=== PATIENT | female | born 2000 | race Caucasian/White ===

== ENCOUNTER 2020-12-04 00:16 | Emergency (ER) | payer BC, MEDICAID, SELFPAY ==
[2020-12-04 00:44] VITALS: BP 105/62; PULSE 72; RESP 18; TEMP 36.6; O2SAT 98; BMI 21.9
[2020-12-04 01:46] LABS: Appearance Urine HAZY; Color Urine DARK YELLOW; Glucose Urine UA NEG (NEG); Leukocyte Esterase Urine NEG (NEG); Nitrite Urine NEG (NEG); PH 5.5 (5.0-8.0); Specific Gravity - Urine >= 1.030 (1.005-1.025); Urine Blood TRACE (NEG); Urine Ketones NEG (NEG); Urine Protein NEG (NEG-TRACE)
[2020-12-04 01:47] LABS: UPreg QC Valid YES; Urine Pregnancy NEGATIVE (NEGATIVE)
[2020-12-04 01:52] LABS: Bacteria Urine TRACE /LPF; Mucus Urine 2+ /LPF; Squamous Epithelial Cell Urine 1+ /LPF; WBC Urine 0-2 /HPF (0-4)
--- NOTE | 2020-12-04 01:54 | ED_ITS ---
HPI - Headache General Chief Complaint: Headache Stated Complaint: headache Time Seen by Provider: 12/04/20 00:53 Source: patient Mode of arrival: ambulatory History of Present Illness HPI Narrative: 20-year-old female presents with 2 days of head pressure without photosensitivity, neck pain, nausea, fevers, chills, hiking / take exposure, sore throat, cough, or ear pain. She states that she has been alternating Tylenol and ibuprofen since yesterday without success. She denies any recent alcohol intake or decrease in hydration status and otherwise denies any GI or symptoms. LMP 11/11. she denies any visual /speech/auditory changes and denies any gait instability. Related Data Allergies Allergy/AdvReac Type Severity Reaction Status Date / Time diphenhydramine Allergy Anaphylaxis Verified 12/04/20 00:49 [From Benadryl] sulfamethoxazole Allergy Anaphylaxis Verified 12/04/20 00:49 [From Bactrim] trimethoprim [From Bactrim] Allergy Anaphylaxis Verified 12/04/20 00:49 Review of Systems Review of Systems: Pertinent positives and negatives as stated in HPI 10 point review of systems is otherwise negative. FOR[facility], [facility] Past Medical History Source: nursing notes reviewed Social History Social History Advance Directives: No Patient : No Physical Exam Vital Signs: Vital Signs: Last Vital Signs Temp 97.8 F 12/04/20 00:44 Pulse 68 12/04/20 02:56 Resp 18 12/04/20 02:56 BP 122/66 12/04/20 02:56 Pulse Ox 99 12/04/20 02:56 Body Mass Index 21.9 VITAL SIGNS: Reviewed. GENERAL: Well developed, well nourished, in no acute distress. HEAD: Normocephalic/atraumatic EYES: PERRLA, EOMI intact without pain, no nystagmus EARS: Ext canals without abnormality, TMs non-bulging and non-erythematous NOSE: Nares patent bilateral OROPHARYNX: no oral lesions noted, posterior pharynx clear and non-erythematous without noted tonsillar enlargement/erythema/exudates NECK: Supple, no adenopathy LUNGS: Normal breath sounds. No adventitious sounds or accessory muscle use. SpO2<98> CARDIOVASCULAR: Regular rate and rhythm without noted murmurs ABDOMEN: Soft, non-tender, non-distended with bowel sounds. SKIN: Inspection of the skin reveals no rashes NEUROLOGIC: Alert and oriented x 4. Strength and sensation to light touch were grossly intact x 4. Course Course Course Narrative: 20-year-old female with history and clinical presentation consistent with sinus headache versus tension headache. Patient provided with analgesic combination and will be re-evaluated. On re-evaluation patient is feeling better although still has some residual headache and is otherwise hemodynamically stable without focal findings. She was discharged home in stable condition. MDM - Headache Lab Data Labs: Lab Results 12/04/20 12/04/20 Range/Units 01:41 01:41 Urine Color DARK YELLOW Urine Appearance HAZY Urine pH 5.5 (5.0-8.0) Ur Specific [place] >= 1.030 H (1.005-1.025) Urine Protein NEG (NEG-TRACE) MG/DL Urine Glucose (UA) NEG (NEG) MG/DL Urine Ketones NEG (NEG) MG/DL Urine Blood TRACE (NEG) Urine Nitrite NEG (NEG) Ur Leukocyte Esterase NEG (NEG) Urine RBC 1-4 (0) /HPF Urine WBC 0-2 (0-4) /HPF Ur Squamous Epith Cells 1+ /LPF Urine Bacteria TRACE /LPF Urine Mucus 2+ /LPF Urine Test NEGATIVE (NEGATIVE) Discharge Plan Discharge Clinical Impression: Headache Patient Disposition: Home, Self-Care Instructions: Toothache (ED), General Headache (ED) Additional Instructions: 1. please follow-up with your primary care provider in the next 2-3 days for re- evaluation and further outpatient management. 2. Tylenol 1000 mg, orally, every 6 hours as needed for pain control. Do not exceed 4000 mg within 24 hours. 3. Recommend [id number] Excedrin migraine and take as directed on the outside packaging. As long as this medication does not have additional acetaminophen/ Tylenol you may take this in combination with the above Tylenol dose for added relief. 4. Please follow up with the dentist by calling them this morning to set up a follow-up appointment for re-evaluation of your tooth. Return to the ER for acute worsening of symptoms. Referrals: Physician,None [Primary Care Provider] - 2 days
[2020-12-04] MEDS: Acetaminophen 325 MG TABLET 975 MG PO (02:42)
[2020-12-04] MEDS: Ketorolac Tromethamine 15 MG/ML VIAL IM (02:43)
[2020-12-04 02:56] VITALS: BP 122/66; PULSE 68; RESP 18; O2SAT 99
== END 2020-12-04 04:40 | disposition home or self-care (01) ==
PROVIDERS: Emergency Provider Student in an Organized Health Care Education/Training Program
DX: R51.9 Headache, unspecified (principal)
CPT/HCPCS: 81001; 81025; 96372; 99284; J1885

== ENCOUNTER 2021-01-17 00:15 | Emergency (ER) | payer BC, MEDICAID, SELFPAY ==
[2021-01-17 00:20] VITALS: BP 116/63; PULSE 72; RESP 18; TEMP 36.4; O2SAT 98; BMI 22.0
[2021-01-17] MEDS: Famotidine/PF 20 MG/2 ML VIAL IVPUSH ×2 (00:31→01:29)
[2021-01-17] MEDS: methylPREDNISolone Sod Succ 125 MG/2 ML VIAL IVPUSH ×2 (00:31→01:29)
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
[2021-01-17] MEDS: 0.9 % Sodium Chloride 1,000 ML 999 ML IVCONT (01:28)
[2021-01-17 01:51] VITALS: BP 106/62; PULSE 58; RESP 14; TEMP 36.6; O2SAT 100
== END 2021-01-17 02:13 | disposition home or self-care (01) ==
PROVIDERS: Emergency Provider Emergency Medicine Emergency Medical Services
DX: T78.40XA Allergy, unspecified, initial encounter (principal); Y99.9 Unspecified external cause status; L50.9 Urticaria, unspecified
CPT/HCPCS: 96361; 96374; 96375; 96376; 99283; 99284; J2930

== ENCOUNTER 2021-03-22 06:54 | Emergency (ER) | payer MEDICAID, SELFPAY ==
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
[2021-03-22 07:19] VITALS: BP 103/67; PULSE 92; RESP 16; TEMP 36.4; O2SAT 97; BMI 22.6
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
[2021-03-22] MEDS: Ketorolac Tromethamine 60 MG/2 ML VIAL IM (07:49)
[2021-03-22 08:57] VITALS: RESP 18
== END 2021-03-22 08:58 | disposition home or self-care (01) ==
PROVIDERS: Emergency Provider Emergency Medicine
DX: S40.021A Contusion of right upper arm, initial encounter (principal); M79.601 Pain in right arm; V19.9XXA Pedal cyclist (driver) (passenger) injured in unspecified traffic accident, initial encounter; Y93.9 Activity, unspecified; Y92.9 Unspecified place or not applicable; Y99.9 Unspecified external cause status; Z79.899 Other long term (current) drug therapy
CPT/HCPCS: 73030; 73060; 73070; 96372; 99284; J1885

== ENCOUNTER 2021-05-04 05:40 | Emergency (ER) | payer OTHER, SELFPAY ==
[2021-05-04 05:58] VITALS: BP 119/82; PULSE 85; RESP 16; TEMP 36.8; O2SAT 99; BMI 20.7
--- NOTE | 2021-05-04 06:08 | ED.DENTAL ---
HPI - Dental/Oral General Chief complaint: Dental/Oral Stated complaint: root canal complication Time Seen by Provider: 05/04/21 06:03 Source: patient Mode of arrival: ambulatory Limitations: no limitations History of Present Illness HPI Narrative: likely failed root canal per her dentist has appointment with specialist on Thursday - on clindamycin since thursday reports she is in too much pain and her whole mouth hurts Complaint: tooth pain Onset (ago): week(s) (1.5) Duration: constant Severity: moderate Relieving factors: nothing Exacerbating factors: chewing, cold, heat, drinking fluids and swallowing Context: history of dental caries and other (failed root canal) Treatment prior to arrival: other (on clindamycin) Related Data Previous Rx's Medication Instructions Recorded famotidine 20 mg tablet (Pepcid AC) 20 mg PO DAILY #4 tab 01/17/21 prednisone 50 mg tablet 50 mg PO DAILY #4 tab 01/17/21 ibuprofen 600 mg tablet 600 mg PO TID #20 tab 03/22/21 tramadol 50 mg tablet 50 mg PO TID PRN 3 Days #10 tab 05/04/21 Allergies Allergy/AdvReac Type Severity Reaction Status Date / Time diphenhydramine Allergy Anaphylaxis Verified 05/04/21 06:03 [From Benadryl] sulfamethoxazole Allergy Anaphylaxis Verified 05/04/21 06:03 [From Bactrim] trimethoprim [From Bactrim] Allergy Anaphylaxis Verified 05/04/21 06:03 Review of Systems Review of Systems: Constitutional : No Fever, No Chills ENT/Mouth : No swallowing difficulty, no change in voice, positive dental pain, positive jaw pain, no facial swelling Eyes: No Eye Pain, No Swelling Cardiovascular : No Chest Pain, No SOB Respiratory : No Cough, No Sputum Gastrointestinal : No Nausea, No Vomiting, No Diarrhea Skin : No rash Neuro : No Weakness, No Numbness, No Headache PMF Past Medical History Medical History Failing root canal Social History Social History (Updated 05/04/21 @ 06:32 by Aye Alonso DO) Patient Tobacco Use Status: Never used Tobacco Advance Directives: No Advance Directives Information Provided: Yes Patient : No Physical Exam Vital Signs: Vital Signs: Last Vital Signs Temp 98.2 F 05/04/21 05:58 Pulse 85 12/04/21 05:58 Resp 16 05/04/21 05:58 BP 119/82 05/04/21 05:58 Pulse Ox 99 05/04/21 05:58 BMI result Body Mass Index 20.7 Appearance: Alert. Oriented X3. No acute distress. Eyes: Pupils equal, round and reactive to light. ENT: Pharynx normal. no swelling, no abscess, poor dentition, no fluctuance no submandibular or sublingual swelling Neck: Normal inspection. Neck supple. no swelling CVS: Pulses normal. Respiratory: No respiratory distress. Abdomen: Soft and non-tender. Skin: Skin warm and dry. Normal skin color. Extremities: No lower extremity edema. Neuro: Oriented X 3. No motor deficit. No sensory deficit. MDM - Dental/Oral MDM Narrative Medical decision making narrative: 20 yo female with hx of root canal 3 months ago did well until 1 week ago with worsening pain - shes on clindamycin since yesterday I do not see an abscess at this time. Her pain is all over she has no fevers, no swelling - will continue on her clindamycin and start on pain medications. I attest that I have reviewed patients [place], and at this time prescribing the patient a controlled substance is appropriate based off of patients diagnosis and treatment plan Discharge Plan Discharge Clinical Impression: Toothache Patient Disposition: Home, Self-Care Instructions: Toothache (ED) Additional Instructions: return to ED for any worsening symptoms or concerns please follow up with your dentist on Thursday Prescriptions: New tramadol 50 mg tablet 50 mg PO TID PRN (Reason: pain) 3 Days Qty: 10 RF: 0 No Action prednisone 50 mg tablet 50 mg PO DAILY Qty: 4 RF: 0 famotidine [Pepcid AC] 20 mg tablet 20 mg PO DAILY Qty: 4 RF: 0 ibuprofen 600 mg tablet 600 mg PO TID Qty: 20 RF: 0 Stand Alone Forms: Work/School Release
[2021-05-04] MEDS: HYDROcodone Bit/Acetam 5/325 TABLET 1 TAB PO (06:26)
[2021-05-04] MEDS: Ondansetron ODT 4 MG TAB.RAPDIS TRANSLINGU (06:26)
--- NOTE | 2021-05-04 06:27 | PC.NURSE ---
Medicated per MAR.
== END 2021-05-04 06:35 | disposition home or self-care (01) ==
PROVIDERS: Emergency Provider Emergency Medicine
DX: K08.89 Other specified disorders of teeth and supporting structures (principal)
CPT/HCPCS: 99283

== ENCOUNTER 2021-05-07 01:44 | Emergency (ER) | payer OTHER, SELFPAY ==
[2021-05-07 02:02] VITALS: BP 113/63; PULSE 82; RESP 16; TEMP 36.9; O2SAT 100; BMI 20.7
--- NOTE | 2021-05-07 02:17 | ED.DENTAL ---
HPI - Dental/Oral General Chief complaint: Dental/Oral Stated complaint: tooth pain Time Seen by Provider: 05/07/21 02:02 Source: patient Mode of arrival: ambulatory Limitations: no limitations History of Present Illness HPI Narrative: Patient comes emergency room complaining of dental pain. Patient was seen earlier this week for dental pain. Prescribed oxycodone, patient states it worked well. Patient was seen today by her dentist, then she was sent to a specialist in [place]. She went to her appointment in [place], she was told that her insurance will not cover the procedure on the same tooth. At this time, patient dealing with insurance issues. Patient continues taking prescribed antibiotics but she ran out of pain medication. Patient denies fever chills, Related Data Previous Rx's Medication Instructions Recorded famotidine 20 mg tablet (Pepcid AC) 20 mg PO DAILY #4 tab 01/17/21 prednisone 50 mg tablet 50 mg PO DAILY #4 tab 01/17/21 ibuprofen 600 mg tablet 600 mg PO TID #20 tab 03/22/21 tramadol 50 mg tablet 50 mg PO TID PRN 3 Days #10 tab 05/04/21 ketorolac 10 mg tablet 10 mg PO TID PRN 5 Days #10 tab 05/07/21 oxycodone 5 mg tablet 5 mg PO Q8H PRN #7 tab 05/07/21 Allergies Allergy/AdvReac Type Severity Reaction Status Date / Time diphenhydramine Allergy Anaphylaxis Verified 05/04/21 06:03 [From Benadryl] sulfamethoxazole Allergy Anaphylaxis Verified 05/04/21 06:03 [From Bactrim] trimethoprim [From Bactrim] Allergy Anaphylaxis Verified 05/04/21 06:03 Review of Systems Review of Systems: Constitutional : No Weight loss, No Fever, No Chills, No Night Sweats, No Fatigue, No Malaise ENT/Mouth : No Hearing loss, No Ear Pain, No Nasal Congestion, No Sinus Pain, No Hoarseness, No sore throat, No Rhinorrhea, No Swallowing Difficulty, complaining of dental pain Eyes: No Eye Pain, No Swelling, No Redness, No Foreign Body, No Discharge, No Vision Changes Cardiovascular : No Chest Pain, No SOB, No Dyspnea on Exertion, No Orthopnea, No Edema, No Palpitations Respiratory : No Cough, No Sputum, No Wheezing, No Smoke Exposure, No Dyspnea Gastrointestinal : No Nausea, No Vomiting, No Diarrhea, No Constipation, No abdominal Pain, No Hematochezia, No Melena Genitourinary : no irregular bleeding, No Dysuria, No Urinary Frequency, No Hematuria, No Urinary Incontinence, No Urgency, No Flank Pain, No Urinary Flow Changes, No Hesitancy Musculoskeletal : No joint pain, No Myalgias, No Joint Swelling Skin : No Skin Lesions, No rash Neuro : No Weakness, No Numbness, No Paresthesias, No Loss of Consciousness, No Dizziness, No Headache Psych : No Anxiety/Panic, No Depression, No SI/HI/AH/VH, No Social Issues, Heme/Lymph: No Bruising, No Bleeding,No Lymphadenopathy Endocrine : No Polyuria, No Polydipsia, No Temperature Intolerance [facility] Past Medical History Medical History Failing root canal Social History Social History (Updated 05/04/21 @ 06:32 by Aye Alonso DO) Patient Tobacco Use Status: Never used Tobacco Advance Directives: No Physical Exam Vital Signs: Vital Signs: Last Vital Signs Temp 98.5 F 05/07/21 02:02 Pulse 82 05/07/21 02:02 Resp 16 05/07/21 02:02 BP 113/63 05/07/21 02:02 Pulse Ox 100 05/07/21 02:02 BMI result Body Mass Index 20.7 Const: Other: Appearance: Alert. Oriented X3. No acute distress. Eyes: Pupils equal, round and reactive to light. ENT: Pharynx normal. Dental pain in the maxillary right side. No abscesses, no gingivitis, no facial swelling Neck: Normal inspection. Neck supple. No lymph nodes noted. No crepitus CVS: Normal heart rate and rhythm. Pulses normal. Normal S1 and S2 Respiratory: No respiratory distress. Breath sounds normal. No Wheezing. No rales Abdomen: Soft and nontender. No rigidity. No distention. good BS x4 Skin: Skin warm and dry. Normal skin color. Normal skin turgor. Extremities: No lower extremity edema. No lower extremity edema. No Lacerations. No Rash Neuro: Oriented X 3. No motor deficit. No sensory deficit. Moving all extermities. No slurred speech. Course Course Course Narrative: Patient received 1 dose of IM Toradol. Patient will be prescribed p.o. Toradol and oxycodone. I discussed with the patient the potential of addiction to oxycodone. Patient agrees that she will try to take Toradol and avoid oxycodone. Instructed to continue taking her antibiotics as prescribed. Discharge Plan Discharge Clinical Impression: Toothache Patient Disposition: Home, Self-Care Instructions: Toothache (ED) Additional Instructions: Please follow-up with your primary care physician tomorrow. If you have any worsening or new symptoms, please return to the emergency room or call 911 Prescriptions: New ketorolac 10 mg tablet 10 mg PO TID PRN (Reason: pain) 5 Days Qty: 10 RF: 0 oxycodone 5 mg tablet 5 mg PO Q8H PRN (Reason: pain) Qty: 7 RF: 0 No Action prednisone 50 mg tablet 50 mg PO DAILY Qty: 4 RF: 0 famotidine [Pepcid AC] 20 mg tablet 20 mg PO DAILY Qty: 4 RF: 0 ibuprofen 600 mg tablet 600 mg PO TID Qty: 20 RF: 0 tramadol 50 mg tablet 50 mg PO TID PRN (Reason: pain) 3 Days Qty: 10 RF: 0
[2021-05-07] MEDS: Ketorolac Tromethamine 60 MG/2 ML VIAL IM (02:27)
== END 2021-05-07 02:33 | disposition home or self-care (01) ==
PROVIDERS: Emergency Provider Emergency Medicine
DX: K08.89 Other specified disorders of teeth and supporting structures (principal); Z79.899 Other long term (current) drug therapy
CPT/HCPCS: 96372; 99283; 99284; J1885

== ENCOUNTER 2021-06-02 09:02 | Emergency (ER) | payer OTHER, SELFPAY | END 2021-06-02 11:54 | disposition left against medical advice (07) | PROVIDERS: Emergency Provider Emergency Medicine; PCP Emergency Medicine | DX: R68.89 Other general symptoms and signs (principal) ==

== ENCOUNTER 2021-06-20 23:51 | Emergency (ER) | payer OTHER, MEDICAID, SELFPAY ==
[2021-06-21 00:55] VITALS: BP 133/66; PULSE 75; RESP 19; TEMP 37.2; O2SAT 100; BMI 22.6
--- NOTE | 2021-06-21 02:23 | ED_ITS ---
HPI - Dental/Oral General Chief complaint: Dental/Oral Stated complaint: oral pain after surgery Time Seen by Provider: 06/21/21 00:26 Source: patient Mode of arrival: ambulatory History of Present Illness HPI Narrative: 20-year-old female with presentation of having undergone extensive dental procedure earlier yesterday involving the right upper jaw with screw and bridge removal. Patient was sent home with recommendations for Tylenol started on clindamycin. She states that the gum is very tender and that ?she can take it anymore?. She denies any difficulty with breathing or swallowing. Related Data Previous Rx's Medication Instructions Recorded famotidine 20 mg tablet (Pepcid AC) 20 mg PO DAILY #4 tab 01/17/21 prednisone 50 mg tablet 50 mg PO DAILY #4 tab 01/17/21 ibuprofen 600 mg tablet 600 mg PO TID #20 tab 03/22/21 tramadol 50 mg tablet 50 mg PO TID PRN 3 Days #10 tab 05/04/21 ketorolac 10 mg tablet 10 mg PO TID PRN 5 Days #10 tab 05/07/21 oxycodone 5 mg tablet 5 mg PO Q8H PRN #7 tab 05/07/21 Allergies Allergy/AdvReac Type Severity Reaction Status Date / Time diphenhydramine Allergy Anaphylaxis Verified 05/04/21 06:03 [From Benadryl] sulfamethoxazole Allergy Anaphylaxis Verified 05/04/21 06:03 [From Bactrim] trimethoprim [From Bactrim] Allergy Anaphylaxis Verified 05/04/21 06:03 Review of Systems Review of Systems: Pertinent positives and negatives as stated in HPI 10 point review of systems is otherwise negative. [facility] Past Medical History Source: nursing notes reviewed Medical History Failing root canal Social History Social History Alcohol intake: unknown Patient Tobacco Use Status: Never used Tobacco Use of substances other than those prescribed or required for medical reasons: Unknown Advance Directives: No Advance Directives Information Provided: Yes Physical Exam Vital Signs: Vital Signs: Last Vital Signs Temp 98.1 F 06/21/21 02:43 Pulse 72 06/21/21 02:43 Resp 16 06/21/21 02:43 BP 108/66 06/21/21 02:43 Pulse Ox 99 06/21/21 02:43 BMI result Body Mass Index 22.6 VITAL SIGNS: Reviewed. GENERAL: Well developed, well nourished, in no acute distress. HEAD: Normocephalic/atraumatic EYES: PERRLA, EOMI EARS: Ext canals without abnormality OROPHARYNX: no oral lesions noted, posterior pharynx clear, upper right gum is clearly red and irritated looking with associated dental caries, no trismus NECK: Supple, no adenopathy LUNGS: Normal breath sounds. No adventitious sounds or accessory muscle use. SpO2<100> CARDIOVASCULAR: Regular rate and rhythm without noted murmurs ABDOMEN: Soft, non-tender, non-distended with bowel sounds. NEUROLOGIC: Alert and oriented x 4. Course Course Course Narrative: 20-year-old female with history and clinical presentation consistent with pain after dental procedure in the appearance of significantly irritated gum tissue. Patient was provided with a Lollicaine and will receive combination analgesics in addition. On re-evaluation patient is feeling much improved and will be discharged home in stable condition. Discharge Plan Discharge Clinical Impression: Toothache Patient Disposition: Home, Self-Care Instructions: Toothache (ED) Additional Instructions: 1. Tylenol 1000 mg, orally, every 6 hours as needed for pain control. Do not exceed 4000 mg within 24 hours. 2. Ibuprofen 400 mg, orally with milk or food, every 6 hours as needed for pain control. 3. Recommend using room temperature liquids for ease of gum tissue and complete the entire course of antibiotics as recommended. 4. Recommend using the topical numbing medication as needed for breakthrough pain. Return to the ER for worsening symptoms. Prescriptions: No Action prednisone 50 mg tablet 50 mg PO DAILY Qty: 4 RF: 0 famotidine [Pepcid AC] 20 mg tablet 20 mg PO DAILY Qty: 4 RF: 0 ibuprofen 600 mg tablet 600 mg PO TID Qty: 20 RF: 0 tramadol 50 mg tablet 50 mg PO TID PRN (Reason: pain) 3 Days Qty: 10 RF: 0 ketorolac 10 mg tablet 10 mg PO TID PRN (Reason: pain) 5 Days Qty: 10 RF: 0 oxycodone 5 mg tablet 5 mg PO Q8H PRN (Reason: pain) Qty: 7 RF: 0
[2021-06-21 02:43] VITALS: BP 108/66; PULSE 72; RESP 16; TEMP 36.7; O2SAT 99
[2021-06-21] MEDS: Acetaminophen 325 MG TABLET 975 MG PO (03:21)
[2021-06-21] MEDS: Ibuprofen 400 MG TABLET PO (03:21)
== END 2021-06-21 03:42 | disposition home or self-care (01) ==
PROVIDERS: Emergency Provider Student in an Organized Health Care Education/Training Program
DX: K08.89 Other specified disorders of teeth and supporting structures (principal); G89.18 Other acute postprocedural pain; Z98.818 Other dental procedure status
CPT/HCPCS: 99283; 99284

== ENCOUNTER 2021-07-21 01:55 | Emergency (ER) | payer OTHER, MEDICAID, SELFPAY ==
[2021-07-21 01:56] VITALS: BP 126/77; PULSE 80; RESP 18; TEMP 36.4; O2SAT 100; BMI 21.7
[2021-07-21] MEDS: Ondansetron ODT 4 MG TAB.RAPDIS TRANSLINGU (02:00)
[2021-07-21 02:12] LABS: Appearance Urine CLEAR; Color Urine YELLOW; Glucose Urine UA NEG (NEG); Leukocyte Esterase Urine NEG (NEG); Nitrite Urine NEG (NEG); Specific Gravity - Urine 1.025 (1.005-1.025); Urine Blood NEG (NEG); Urine Ketones NEG (NEG); Urine Protein NEG (NEG-TRACE)
[2021-07-21 02:13] LABS: UPreg QC Valid YES; Urine Pregnancy NEGATIVE (NEGATIVE)
== END 2021-07-21 03:36 | disposition left against medical advice (07) ==
PROVIDERS: Student in an Organized Health Care Education/Training Program; Emergency Provider Emergency Medicine
DX: R10.31 Right lower quadrant pain (principal); R11.2 Nausea with vomiting, unspecified
CPT/HCPCS: 81003; 81025; 99283

== ENCOUNTER 2021-12-09 10:49 | Emergency (ER) | payer OTHER, SELFPAY ==
[2021-12-09 11:04] VITALS: BP 122/62; PULSE 60; RESP 19; TEMP 36.6; O2SAT 99; BMI 21.7
--- NOTE | 2021-12-09 11:10 | ECG_ITS ---
Test Reason : syncope Blood Pressure : / mmHG Vent. Rate : 066 BPM Atrial Rate : 066 BPM P-R Int : 114 ms QRS Dur : 080 ms QT Int : 400 ms P-R-T Axes : 035 071 044 degrees QTc Int : 419 ms Normal sinus rhythm Normal ECG No previous ECGs available Referred By: Generic ED Physician Electronically Signed By:NADIR LUNDY MD
[2021-12-09 11:34] LABS: MANUAL DIFF FLAG NO
[2021-12-09 11:35] LABS: Basophils Percent Auto 0.4 % (0-2); Eosinophils Absolute Auto 0.1 X10*3/uL (0.0-0.4); Eosinophils Percent Auto 1.4 % (0-4); Hematocrit 40.3 % (37.0-47.0); Hemoglobin 13.3 g/dl (12.0-16.0); Imm Gran Abs Auto 0.01 X10*3/uL (0.00-0.03); Imm Gran Pct Auto 0.2 % (0.0-0.4); Lymphocytes Absolute Auto 1.8 X10*3/uL (1.2-4.9); Lymphocytes Percent Auto 36.7 % (20-40); Mean Corpuscular Hemoglobin 29.1 pg (27.0-33.0); Mean Corpuscular Volume 88.2 fL (80.0-98.0); Mean Platelet Volume 11.1 fL (9.4-12.3); Monocytes Absolute Auto 0.3 X10*3/uL (0.1-1.2); Monocytes Percent Auto 5.1 % (2-11); Neutrophils Absolute Auto 2.7 x10*3/uL (2.0-8.3); Neutrophils Percent Auto 56.2 % (45-73); Platelet Count 194 X10*3/uL (160-400); Red Blood Count 4.57 X10*6/uL (4.20-5.50); Red Cell Distribution Width 11.9 % (11.0-16.0); White Blood Count 4.9 X10*3/uL (4.8-10.8)
[2021-12-09 11:37] LABS: Appearance Urine CLEAR; Color Urine YELLOW; Glucose Urine UA NEG (NEG); Leukocyte Esterase Urine NEG (NEG); Nitrite Urine NEG (NEG); Specific Gravity - Urine 1.025 (1.005-1.025); Urine Blood NEG (NEG); Urine Ketones NEG (NEG); Urine Protein NEG (NEG-TRACE)
[2021-12-09 11:38] LABS: UPreg QC Valid YES; Urine Pregnancy NEGATIVE (NEGATIVE)
[2021-12-09 11:56] LABS: Anion Gap 11 (12-20); Blood Urea Nitrogen 11 mg/dL (9-16); Calcium 9.3 mg/dL (8.4-10.2); Carbon Dioxide 26 mmol/L (22-29); Chloride 103 mmol/L (96-108); Creatinine Clr Calc Pharmacy 92.5; Estimated Glomerular Filt Rate > 60; Glucose Random 89 mg/dL (60-115); Potassium 4.2 mmol/L (3.3-5.1); Sodium 136 mmol/L (135-145)
[2021-12-09 12:01] LABS: Troponin-I High Sensitivity < 3.5 ng/L (<3.5-17.0)
== END 2021-12-09 16:39 | disposition left against medical advice (07) ==
PROVIDERS: Emergency Provider Emergency Medicine
DX: R55 Syncope and collapse (principal); R42 Dizziness and giddiness; R11.0 Nausea; Z79.899 Other long term (current) drug therapy
CPT/HCPCS: 36415; 80048; 81003; 81025; 84484; 85025; 93005; 99283

== ENCOUNTER 2022-06-14 17:47 | Emergency (ER) | payer OTHER, SELFPAY ==
--- NOTE | ~2022-06-14 | US_ITS ---
EXAMINATION: US ABDOMEN LIMITED CLINICAL INFORMATION: Right upper quadrant abdominal pain, nausea, vomiting, fever. COMPARISON: None TECHNIQUE: Real-time imaging of the right upper quadrant abdominal viscera. FINDINGS: PANCREAS: Normal. LIVER: Diffusely increased hepatic echogenicity and sound attenuation. No focal liver lesion seen. No biliary ductal dilatation.. GALLBLADDER: No gallstones. No gallbladder wall thickening or pericholecystic fluid. No reported sonographic Paredes's sign. 4 mm gallbladder wall polyp. COMMON BILE DUCT: Normal in caliber measuring 0.2 cm in diameter. RIGHT KIDNEY: Normal. No hydronephrosis. No renal calculi or focal parenchymal lesions. The kidney measures 10 cm in maximum dimension. FREE FLUID: None. US/US abdomen limited IMPRESSION: Diffusely increased hepatic echogenicity and sound attenuation suggesting diffuse hepatic steatosis. 4 mm gallbladder wall polyp. This has a very low risk appearance and no imaging follow-up is recommended per the [employer] Consensus Guidelines.
[2022-06-14 18:14] VITALS: BP 120/69; PULSE 91; RESP 18; TEMP 36.6; O2SAT 100; BMI 20.1
--- NOTE | 2022-06-14 18:15 | ED_ITS ---
HPI - Abdominal Pain General Chief Complaint: Abdominal Pain <LEO Ghotra - Last Filed: 06/14/22 18:18> Stated Complaint: gallbladder issues? <LEO Ghotra - Last Filed: 06/14/22 18:18> Time Seen by Provider: 06/14/22 18:26 <LEO Ghotra - Last Filed: 06/14/22 18:18> Source: patient <LEO Negro - Last Filed: 06/14/22 19:59> Mode of arrival: ambulatory <LEO Negro - Last Filed: 06/14/22 19:59> Limitations: no limitations <LEO Negro Last Filed: 06/14/22 19:59> History of Present Illness HPI narrative: This is a 21-year-old female no significant medical history presenting to the emergency department with a chief complaint of ?I am having a gallbladder attack , according to patient she has been having severe right upper quadrant pain for the past 2 days, she tells me it got much worse yesterday after eating a few bites of pizza. She tells me this pain has been going on for the past month and she is scheduled to get her gallbladder removed outpatient at the [facility] on the of this month, she tells me pain is intolerable. Patient also tells me she is having some UTI symptoms, she was on Macrobid for UTI last week she took it for 7 days however she feels like it has not fully resolved. Denies fevers, chills, flank pain, chest pain, shortness of breath, nausea, vomiting, headache, vision changes, dizziness and weakness. <LEO Negro - Last Filed: 06/14/22 19:59> Related Data Home Medications: Previous Rx's Medication Instructions Recorded famotidine 20 mg tablet (Pepcid AC) 20 mg PO DAILY #4 tabs 01/17/21 prednisone 50 mg tablet 50 mg PO DAILY #4 tabs 01/17/21 ibuprofen 600 mg tablet 600 mg PO TID #20 tabs 03/22/21 tramadol 50 mg tablet 50 mg PO TID PRN pain 3 days #10 05/04/21 tabs ketorolac 10 mg tablet 10 mg PO TID PRN pain 5 days #10 05/07/21 tabs oxycodone 5 mg tablet 5 mg PO Q8H PRN pain #7 tabs 05/07/21 cefuroxime axetil 250 mg tablet 250 mg PO BID 7 days #14 tabs 06/14/22 <LEO Ghotra - Last Filed: 06/14/22 18:18> Allergies/Adverse Reactions: Allergies Allergy/AdvReac Type Severity Reaction Status Date / Time diphenhydramine Allergy Anaphylaxis Verified 07/21/21 01:56 [From Benadryl] sulfamethoxazole Allergy Anaphylaxis Verified 07/21/21 01:56 [From Bactrim] trimethoprim [From Bactrim] Allergy Anaphylaxis Verified 07/21/21 01:56 <LEO Ghotra Last Filed: 06/14/22 18:18> Review of Systems Review of Systems Constitutional : No Weight loss, No Fever, No Chills, No Fatigue, No Malaise ENT/Mouth : No sore throat, No Rhinorrhea Eyes: No Eye Pain, No Swelling, No Redness Cardiovascular : No Chest Pain, No SOB, No Dyspnea on Exertion, No Orthopnea, No Edema, No Palpitations Respiratory : No Cough, No Sputum, No Wheezing Gastrointestinal : No Nausea, No Vomiting, No Diarrhea, No Constipation, + abdominal Pain, No Hematochezia, No Melena Genitourinary : No Dysuria, No Urinary Frequency, No Hematuria, Musculoskeletal : No joint pain, No Myalgias, No Joint Swelling Skin : No Skin Lesions, No rash Neuro : No Weakness, No Numbness, No Dizziness, No Headache Psych : No Anxiety/Panic, No Depression All other systems reviewed and are negative <LEO Negro Last Filed: 06/14/22 19:59> Yes all other systems are reviewed and are negative <LEO Negro Last Filed: 06/14/22 19:59> [facility] Past Medical History Attestation statement: The following information was validated with the patient. <LEO Negro Last Filed: 06/14/22 19:59> Source: old records reviewed and nursing notes reviewed <LEO Negro Last Filed: 06/14/22 19:59> Medical History: Medical History Failing root canal <LEO Ghotra - Last Filed: 06/14/22 18:18> Social History Social History: Social History Alcohol intake: unknown Patient Tobacco Use Status: Never used Tobacco Advance Directives: No <LEO Ghotra - Last Filed: 06/14/22 18:18> Physical Exam ED Vital Signs: Vital Signs - 24 hr 06/14/22 18:14 06/14/22 18:51 Temperature 97.9 F 98.4 F Pulse Rate 91 74 Respiratory Rate 18 18 Blood Pressure 120/69 102/60 Pulse Oximetry 100 100 Oxygen Delivery Method Room Air Room Air BMI result Body Mass Index 20.1 <LEO Ghotra - Last Filed: 06/14/22 18:18> Vital Signs - 24 hr 06/14/22 18:14 06/14/22 18:51 Temperature 97.9 F 98.4 F Pulse Rate 91 74 Respiratory Rate 18 18 Blood Pressure 120/69 102/60 Pulse Oximetry 100 100 Oxygen Delivery Method Room Air Room Air BMI result Body Mass Index 20.1 vss <LEO Negro - Last Filed: 06/14/22 19:59> Appearance: Alert.? Oriented X3.? No acute distress.? Patient nontoxic appearing Head: Normocephalic, atraumatic, no step-offs or deformities Eyes: Pupils equal, round and reactive to light.? ENT: Pharynx normal.? Neck: Normal inspection.? Neck supple.? CVS: Normal heart rate and rhythm.? Pulses normal.? Respiratory: No respiratory distress.? Breath sounds normal.? Abdomen: Soft and positive Paredes sign and tenderness to right upper quadrant..? Skin: Skin warm and dry.? Normal skin color.? Normal skin turgor.? Extremities: No lower extremity edema.? No calf ttp. 5/5 strength to bilateral upper and lower extremities Neuro: Oriented X 3.? No motor deficit.? No sensory deficit. CN 2-12 intact <LEO Negro - Last Filed: 06/14/22 19:59> Course Course Course Narrative: RME--21 yo F w/PMHx gallstones and polyps w/scheduled cholecystectomy in [place] in 3 weeks c/o RUQ abdominal pain, N/V, fever 101 today. Abd soft with RUQ/epigastic ttp Labs, UA, US ordered in triage <LEO Ghotra Last Filed: 06/14/22 18:18> Reevaluation(s) Reevaluation #1: CBC within normal limits. Chemistry with no acute findings requiring intervention. UA infected will send home on Ceftin. Urine negative. Patient's ultrasound is still pending however patient tells me that she would like to leave against medical advice, she states she spoke to transfill technician who told her her imaging was normal therefore she wants to leave and finds no need in being here. I explained her that this imaging should be reviewed by Radiology as they are qualified to interpret images, patient tells me she does not care and would like to leave. She also makes her concerns known to nursing. I explained to her that this could require surgical excision of gallbladder and hospital admission further imaging and laboratory studies, patient tells me it does not matter she would like to go home verbalizes risks and benefits of leaving against medical advice. <LEO Negro - Last Filed: 06/14/22 19:59> Time: 19:59 <LEO Negro - Last Filed: 06/14/22 19:59> Medical Decision Making Medical Decision Making MDM Narrative: 21-year-old female presents with right upper quadrant pain worsening over the past 2 days particularly after eating food. She is scheduled to get her gallbladder out on the of this month however tells me pain is intolerable. Physical examination with positive Paredes sign and right upper quadrant tenderness to palpation. Vital signs stable. Patient nontoxic appearing. Likely cholecystitis versus cholelithiasis. Unlikely choledocholithiasis, appendicitis, acute abdomen, peritonitis, diverticulitis or pancreatitis. Will also rule out UTI versus cystitis unlikely pyelonephritis Plan labs, imaging, urine <LEO Negro Last Filed: 06/14/22 19:59> Differential Diagnosis Differential Diagnoses: The differential diagnosis associated with the presentation includes <LEO Negro Last Filed: 06/14/22 19:59> Likely cholecystitis versus cholelithiasis. Unlikely choledocholithiasis, appendicitis, acute abdomen, peritonitis, diverticulitis or pancreatitis. Will also rule out UTI versus cystitis unlikely pyelonephritis <LEO Negro - Last Filed: 06/14/22 19:59> Admission/Observation Consideration of admission/observation: Escalation of care including admission/observation considered <LEO Negro - Last Filed: 06/14/22 19:59> Will likely require hospital admission <LEO Negro - Last Filed: 06/14/22 19:59> Lab Data MDM Lab Attestation statement: I reviewed the patient's lab results. <LEO Negro - Last Filed: 06/14/22 19:59> Result Diagrams: 06/14/22 18:24 06/14/22 18:24 <LEO Ghotra - Last Filed: 06/14/22 18:18> Labs: Lab Results 06/14/22 06/14/22 06/14/22 Range/Units 18:24 18:24 18:31 WBC 6.9 (4.8-10.8) X10*3/uL RBC 4.35 (4.20-5.50) X10*6/uL Hgb 12.8 (12.0-16.0) g/dl Hct 38.7 (37.0-47.0) % MCV 89.0 (80.0-98.0) fL MCH 29.4 (27.0-33.0) pg MCHC 33.1 (31.0-35.0) g/dl RDW 12.2 (11.0-16.0) % Plt Count 183 (160-400) X10*3/uL MPV 11.2 (9.4-12.3) fL Immature Gran % (Auto) 0.3 (0.0-0.4) % Neut % (Auto) 62.0 (45-73) % Lymph % (Auto) 32.2 (20-40) % [place] % (Auto) 4.8 (2-11) % Eos % (Auto) 0.3 (0-4) % Baso % (Auto) 0.4 (0-2) % Lymph # (Auto) 2.2 (1.2-4.9) X10*3/uL [place] # (Auto) 0.3 (0.1-1.2) X10*3/uL Eos # (Auto) 0.0 (0.0-0.4) X10*3/uL Baso # (Auto) 0.0 (0.0-0.2) X10*3/uL Abs Immat Gran (auto) 0.02 (0.00-0.03) X10*3/uL Absolute Neuts (auto) 4.3 (2.0-8.3) x10*3/uL Absolute Nucleated RBC 0.000 (0.0-0.012) X10*3/uL Nucleated RBC % (auto) 0.0 (0.0-0.2) /100WBC Sodium 140 (135-145) mmol/L Potassium 4.0 (3.3-5.1) mmol/L Chloride 108 (96-108) mmol/L Carbon Dioxide 24 (22-29) mmol/L Anion Gap 12 (12-20) BUN 11 (9-16) mg/dL Creatinine 0.78 (0.5-1.4) mg/dL Estim Creat Clear Calc 89.1 Estimated GFR > 60 Random Glucose 88 (60-115) mg/dL Calcium 9.6 (8.4-10.2) mg/dL Magnesium 2.1 (1.6-2.6) mg/dL Total Bilirubin 0.6 (0.0-1.0) mg/dL Direct Bilirubin 0.2 (0.0-0.5) mg/dL AST 18 (5-31) U/L ALT 12 (0-31) U/L Alkaline Phosphatase 44 (39-117) U/L Total Protein 7.6 (6.5-8.0) g/dL Albumin 4.7 (3.5-5.0) g/dL Lipase 20 (8-78) U/L Urine Color Yellow Urine Appearance Cloudy Urine pH 5.5 (5.0-9.0) Ur Specific [place] 1.025 (1.005-1.025) Urine Protein Trace (Neg-Trace) mg/dL Urine Glucose (UA) Negative (Negative) mg/dL Urine Ketones 15 (Negative) mg/dL Urine Blood Moderate (2+) H (Negative) Urine Nitrite Negative (Negative) Ur Leukocyte Esterase Moderate (2+) H (Negative) Urine RBC 0-2 (0-2) /HPF Urine WBC 21-50 H (0-5) /HPF Ur Squamous Epith Cells 11-20 (0-2) /HPF Urine Bacteria 3+ (None Seen) Hyaline Casts 0-2 (0-2) /LPF Urine Test (NEGATIVE) 06/14/22 Range/Units 18:31 WBC (4.8-10.8) X10*3/uL RBC (4.20-5.50) X10*6/uL Hgb (12.0-16.0) g/dl Hct (37.0-47.0) % MCV (80.0-98.0) fL MCH (27.0-33.0) pg MCHC (31.0-35.0) g/dl RDW (11.0-16.0) % Plt Count (160-400) X10*3/uL MPV (9.4-12.3) fL Immature Gran % (Auto) (0.0-0.4) % Neut % (Auto) (45-73) % Lymph % (Auto) (20-40) % [place] % (Auto) (2-11) % Eos % (Auto) (0-4) % Baso % (Auto) (0-2) % Lymph # (Auto) (1.2-4.9) X10*3/uL [place] # (Auto) (0.1-1.2) X10*3/uL Eos # (Auto) (0.0-0.4) X10*3/uL Baso # (Auto) (0.0-0.2) X10*3/uL Abs Immat Gran (auto) (0.00-0.03) X10*3/uL Absolute Neuts (auto) (2.0-8.3) x10*3/uL Absolute Nucleated RBC (0.0-0.012) X10*3/uL Nucleated RBC % (auto) (0.0-0.2) /100WBC Sodium (135-145) mmol/L Potassium (3.3-5.1) mmol/L Chloride (96-108) mmol/L Carbon Dioxide (22-29) mmol/L Anion Gap (12-20) BUN (9-16) mg/dL Creatinine (0.5-1.4) mg/dL Estim Creat Clear Calc Estimated GFR Random Glucose (60-115) mg/dL Calcium (8.4-10.2) mg/dL Magnesium (1.6-2.6) mg/dL Total Bilirubin (0.0-1.0) mg/dL Direct Bilirubin (0.0-0.5) mg/dL AST (5-31) U/L ALT (0-31) U/L Alkaline Phosphatase (39-117) U/L Total Protein (6.5-8.0) g/dL Albumin (3.5-5.0) g/dL Lipase (8-78) U/L Urine Color Urine Appearance Urine pH (5.0-9.0) Ur Specific [place] (1.005-1.025) Urine Protein (Neg-Trace) mg/dL Urine Glucose (UA) (Negative) mg/dL Urine Ketones (Negative) mg/dL Urine Blood (Negative) Urine Nitrite (Negative) Ur Leukocyte Esterase (Negative) Urine RBC (0-2) /HPF Urine WBC (0-5) /HPF Ur Squamous Epith Cells (0-2) /HPF Urine Bacteria (None Seen) Hyaline Casts (0-2) /LPF Urine Test NEGATIVE (NEGATIVE) <LEO Ghotra - Last Filed: 06/14/22 18:18> Lab Results 06/14/22 06/14/22 06/14/22 Range/Units 18:24 18:24 18:31 WBC 6.9 (4.8-10.8) X10*3/uL RBC 4.35 (4.20-5.50) X10*6/uL Hgb 12.8 (12.0-16.0) g/dl Hct 38.7 (37.0-47.0) % MCV 89.0 (80.0-98.0) fL MCH 29.4 (27.0-33.0) pg MCHC 33.1 (31.0-35.0) g/dl RDW 12.2 (11.0-16.0) % Plt Count 183 (160-400) X10*3/uL MPV 11.2 (9.4-12.3) fL Immature Gran % (Auto) 0.3 (0.0-0.4) % Neut % (Auto) 62.0 (45-73) % Lymph % (Auto) 32.2 (20-40) % [place] % (Auto) 4.8 (2-11) % Eos % (Auto) 0.3 (0-4) % Baso % (Auto) 0.4 (0-2) % Lymph # (Auto) 2.2 (1.2-4.9) X10*3/uL [place] # (Auto) 0.3 (0.1-1.2) X10*3/uL Eos # (Auto) 0.0 (0.0-0.4) X10*3/uL Baso # (Auto) 0.0 (0.0-0.2) X10*3/uL Abs Immat Gran (auto) 0.02 (0.00-0.03) X10*3/uL Absolute Neuts (auto) 4.3 (2.0-8.3) x10*3/uL Absolute Nucleated RBC 0.000 (0.0-0.012) X10*3/uL Nucleated RBC % (auto) 0.0 (0.0-0.2) /100WBC Sodium 140 (135-145) mmol/L Potassium 4.0 (3.3-5.1) mmol/L Chloride 108 (96-108) mmol/L Carbon Dioxide 24 (22-29) mmol/L Anion Gap 12 (12-20) BUN 11 (9-16) mg/dL Creatinine 0.78 (0.5-1.4) mg/dL Estim Creat Clear Calc 89.1 Estimated GFR > 60 Random Glucose 88 (60-115) mg/dL Calcium 9.6 (8.4-10.2) mg/dL Magnesium 2.1 (1.6-2.6) mg/dL Total Bilirubin 0.6 (0.0-1.0) mg/dL Direct Bilirubin 0.2 (0.0-0.5) mg/dL AST 18 (5-31) U/L ALT 12 (0-31) U/L Alkaline Phosphatase 44 (39-117) U/L Total Protein 7.6 (6.5-8.0) g/dL Albumin 4.7 (3.5-5.0) g/dL Lipase 20 (8-78) U/L Urine Color Yellow Urine Appearance Cloudy Urine pH 5.5 (5.0-9.0) Ur Specific [place] 1.025 (1.005-1.025) Urine Protein Trace (Neg-Trace) mg/dL Urine Glucose (UA) Negative (Negative) mg/dL Urine Ketones 15 (Negative) mg/dL Urine Blood Moderate (2+) H (Negative) Urine Nitrite Negative (Negative) Ur Leukocyte Esterase Moderate (2+) H (Negative) Urine RBC 0-2 (0-2) /HPF Urine WBC 21-50 H (0-5) /HPF Ur Squamous Epith Cells 11-20 (0-2) /HPF Urine Bacteria 3+ (None Seen) Hyaline Casts 0-2 (0-2) /LPF Urine Test (NEGATIVE) 06/14/22 Range/Units 18:31 WBC (4.8-10.8) X10*3/uL RBC (4.20-5.50) X10*6/uL Hgb (12.0-16.0) g/dl Hct (37.0-47.0) % MCV (80.0-98.0) fL MCH (27.0-33.0) pg MCHC (31.0-35.0) g/dl RDW (11.0-16.0) % Plt Count (160-400) X10*3/uL MPV (9.4-12.3) fL Immature Gran % (Auto) (0.0-0.4) % Neut % (Auto) (45-73) % Lymph % (Auto) (20-40) % [place] % (Auto) (2-11) % Eos % (Auto) (0-4) % Baso % (Auto) (0-2) % Lymph # (Auto) (1.2-4.9) X10*3/uL [place] # (Auto) (0.1-1.2) X10*3/uL Eos # (Auto) (0.0-0.4) X10*3/uL Baso # (Auto) (0.0-0.2) X10*3/uL Abs Immat Gran (auto) (0.00-0.03) X10*3/uL Absolute Neuts (auto) (2.0-8.3) x10*3/uL Absolute Nucleated RBC (0.0-0.012) X10*3/uL Nucleated RBC % (auto) (0.0-0.2) /100WBC Sodium (135-145) mmol/L Potassium (3.3-5.1) mmol/L Chloride (96-108) mmol/L Carbon Dioxide (22-29) mmol/L Anion Gap (12-20) BUN (9-16) mg/dL Creatinine (0.5-1.4) mg/dL Estim Creat Clear Calc Estimated GFR Random Glucose (60-115) mg/dL Calcium (8.4-10.2) mg/dL Magnesium (1.6-2.6) mg/dL Total Bilirubin (0.0-1.0) mg/dL Direct Bilirubin (0.0-0.5) mg/dL AST (5-31) U/L ALT (0-31) U/L Alkaline Phosphatase (39-117) U/L Total Protein (6.5-8.0) g/dL Albumin (3.5-5.0) g/dL Lipase (8-78) U/L Urine Color Urine Appearance Urine pH (5.0-9.0) Ur Specific [place] (1.005-1.025) Urine Protein (Neg-Trace) mg/dL Urine Glucose (UA) (Negative) mg/dL Urine Ketones (Negative) mg/dL Urine Blood (Negative) Urine Nitrite (Negative) Ur Leukocyte Esterase (Negative) Urine RBC (0-2) /HPF Urine WBC (0-5) /HPF Ur Squamous Epith Cells (0-2) /HPF Urine Bacteria (None Seen) Hyaline Casts (0-2) /LPF Urine Test NEGATIVE (NEGATIVE) <LEO Negro - Last Filed: 06/14/22 19:59> Core Measures AMI core measures followed: Yes <LEO Negro - Last Filed: 06/14/22 19:59> Measure exclusions: not indicated <LEO eNgro - Last Filed: 06/14/22 19:59> Medications Administered Discontinued Medications Generic Name Dose Route Start Last Admin Trade Name Freq PRN Reason Stop Dose Admin Sodium Chloride 1,000 mls @ 999 mls/hr 06/14/22 18:15 06/14/22 18:49 Ns IV 06/14/22 19:15 Not Given .Q1H1M ROBIN <LEO Ghotra - Last Filed: 06/14/22 18:18> Medications Administered Discontinued Medications Generic Name Dose Route Start Last Admin Trade Name Freq PRN Reason Stop Dose Admin Sodium Chloride 1,000 mls @ 999 mls/hr 06/14/22 18:15 06/14/22 18:49 Ns IV 06/14/22 19:15 Not Given .Q1H1M ROBIN <LEO Negro - Last Filed: 06/14/22 19:59> Discharge Plan Discharge Clinical Impression: UTI (urinary tract infection), Abdominal pain, RUQ, Left against medical advice <LEO Ghotra Last Filed: 06/14/22 18:18> Patient Disposition: Home, Self-Care <LEO Ghotra Last Filed: 06/14/22 18:18> Instructions: Urinary Tract Infection in Women (ED), Abdominal Pain (ED), Against Medical Advice (ED) <LEO Ghotra Last Filed: 06/14/22 18:18> Additional Instructions: Take your medications as prescribed. If you were prescribed antibiotics today, it is important that you take your medication to their entirety, do not skip any doses, do not finish them early. Follow-up with your primary care provider this week. Return to the emergency department with new or worsening symptoms. Such as fevers, chills, chest pain, shortness of breath, nausea, vomiting, dizziness, headache, vision changes, lethargy In case of emergency call 911 <LEO Ghotra Last Filed: 06/14/22 18:18> Prescriptions: New cefuroxime axetil 250 mg tablet 250 mg PO BID 7 Days Qty: 14 0RF No Action prednisone 50 mg tablet 50 mg PO DAILY Qty: 4 0RF famotidine [Pepcid AC] 20 mg tablet 20 mg PO DAILY Qty: 4 0RF ibuprofen 600 mg tablet 600 mg PO TID Qty: 20 0RF tramadol 50 mg tablet 50 mg PO TID PRN (Reason: pain) 3 Days Qty: 10 0RF ketorolac 10 mg tablet 10 mg PO TID PRN (Reason: pain) 5 Days Qty: 10 0RF Rx Instructions: Do not take ibuprofen with this medication, only oxycodone or Tylenol if needed oxycodone 5 mg tablet 5 mg PO Q8H PRN (Reason: pain) Qty: 7 0RF <LEO Ghotra - Last Filed: 06/14/22 18:18> Referrals: Physician,None [Primary Care Provider] - 2 days <LEO Ghotra - Last Filed: 06/14/22 18:18> Stand Alone Forms: Against Medical Advice <LEO Ghotra - Last Filed: 06/14/22 18:18>
[2022-06-14 18:26] LABS: MANUAL DIFF FLAG NO
[2022-06-14 18:34] LABS: Basophils Percent Auto 0.4 % (0-2); Eosinophils Percent Auto 0.3 % (0-4); Hematocrit 38.7 % (37.0-47.0); Hemoglobin 12.8 g/dl (12.0-16.0); Imm Gran Abs Auto 0.02 X10*3/uL (0.00-0.03); Imm Gran Pct Auto 0.3 % (0.0-0.4); Lymphocytes Absolute Auto 2.2 X10*3/uL (1.2-4.9); Lymphocytes Percent Auto 32.2 % (20-40); Mean Corpuscular HGB Conc 33.1 g/dl (31.0-35.0); Mean Corpuscular Hemoglobin 29.4 pg (27.0-33.0); Mean Platelet Volume 11.2 fL (9.4-12.3); Monocytes Absolute Auto 0.3 X10*3/uL (0.1-1.2); Monocytes Percent Auto 4.8 % (2-11); Neutrophils Absolute Auto 4.3 x10*3/uL (2.0-8.3); Platelet Count 183 X10*3/uL (160-400); Red Blood Count 4.35 X10*6/uL (4.20-5.50); Red Cell Distribution Width 12.2 % (11.0-16.0); White Blood Count 6.9 X10*3/uL (4.8-10.8)
[2022-06-14 18:48] LABS: Appearance Urine Cloudy; Color Urine Yellow; Glucose Urine UA Negative (Negative); Leukocyte Esterase Urine Moderate (2+) (Negative); Nitrite Urine Negative (Negative); PH 5.5 (5.0-9.0); Specific Gravity - Urine 1.025 (1.005-1.025); UMIC TRIGGER UACC YES; UPreg QC Valid YES; Urine Blood Moderate (2+) (Negative); Urine Ketones 15 mg/dL (Negative); Urine Pregnancy NEGATIVE (NEGATIVE); Urine Protein Trace mg/dL (Neg-Trace)
[2022-06-14 18:50] LABS: Alanine Aminotransferase 12 U/L (0-31); Albumin Level 4.7 g/dL (3.5-5.0); Alkaline Phosphatase 44 U/L (39-117); Anion Gap 12 (12-20); Aspartate Amino Transferase 18 U/L (5-31); Bilirubin Direct 0.2 mg/dL (0.0-0.5); Bilirubin Total 0.6 mg/dL (0.0-1.0); Blood Urea Nitrogen 11 mg/dL (9-16); Calcium 9.6 mg/dL (8.4-10.2); Carbon Dioxide 24 mmol/L (22-29); Chloride 108 mmol/L (96-108); Creatinine Clr Calc Pharmacy 89.1; Estimated Glomerular Filt Rate > 60; Glucose Random 88 mg/dL (60-115); Lipase 20 U/L (8-78); Magnesium 2.1 mg/dL (1.6-2.6); Sodium 140 mmol/L (135-145); Total Protein 7.6 g/dL (6.5-8.0)
[2022-06-14 18:51] VITALS: BP 102/60; PULSE 74; RESP 18; TEMP 36.9; O2SAT 100
[2022-06-14 18:59] LABS: Bacteria Urine 3+ (None Seen); Hyaline Casts Urine 0-2 /LPF (0-2); RBC Urine 0-2 /HPF (0-2); UACC Culture Trigger YES; WBC Urine 21-50 /HPF (0-5)
--- NOTE | 2022-06-14 19:07 | PC.NURSE ---
pt refusing line and IV fluids, LEO lyman
== END 2022-06-14 20:05 | disposition home or self-care (01) ==
PROVIDERS: Physician Assistant; Emergency Provider Emergency Medicine
DX: N39.0 Urinary tract infection, site not specified (principal); R10.11 Right upper quadrant pain
CPT/HCPCS: 36415; 76705; 80048; 80076; 81001; 81025; 83690; 83735; 85025; 87086; 99283; 99284

== ENCOUNTER 2022-06-15 20:51 | Emergency (ER) | payer OTHER, SELFPAY ==
[2022-06-15 20:54] VITALS: BP 110/61; PULSE 92; RESP 20; TEMP 36.1; O2SAT 99; BMI 20.7
--- NOTE | 2022-06-15 21:36 | ED_ITS ---
HPI - Abdominal Pain General Chief Complaint: Abdominal Pain Stated Complaint: chest/abdominal pain Time Seen by Provider: 06/15/22 21:28 Source: patient Mode of arrival: ambulatory Limitations: no limitations History of Present Illness HPI narrative: Patient has frequent right upper quadrant epigastric pain for few months seen at [facility] resource analyst had full detailed workup and decided to have cholecystectomy per patient she had gallstones. Patient had ultrasound done yesterday at [facility] showed only small polyp no signs of cholecystitis no gallstones labs were normal. Patient comes here as she has pain earlier today but not now also has nausea no vomiting no diarrhea no fever or chills no urinary complaints Related Data Previous Rx's Medication Instructions Recorded famotidine 20 mg tablet (Pepcid AC) 20 mg PO DAILY #4 tabs 01/17/21 prednisone 50 mg tablet 50 mg PO DAILY #4 tabs 01/17/21 ibuprofen 600 mg tablet 600 mg PO TID #20 tabs 03/22/21 tramadol 50 mg tablet 50 mg PO TID PRN pain 3 days #10 05/04/21 tabs ketorolac 10 mg tablet 10 mg PO TID PRN pain 5 days #10 05/07/21 tabs oxycodone 5 mg tablet 5 mg PO Q8H PRN pain #7 tabs 05/07/21 cefuroxime axetil 250 mg tablet 250 mg PO BID 7 days #14 tabs 06/14/22 dicyclomine 20 mg tablet 20 mg PO QID PRN abdominal pain 06/15/22 #20 tabs ondansetron 4 mg disintegrating 4 mg PO Q6-8H PRN nausea and 06/15/22 tablet vomiting #15 tabs pantoprazole 40 mg tablet,delayed 40 mg PO DAILY #30 tabs 06/15/22 release (Protonix) Allergies Allergy/AdvReac Type Severity Reaction Status Date / Time diphenhydramine Allergy Anaphylaxis Verified 06/15/22 20:58 [From Benadryl] sulfamethoxazole Allergy Anaphylaxis Verified 06/15/22 20:58 [From Bactrim] trimethoprim [From Bactrim] Allergy Anaphylaxis Verified 06/15/22 20:58 [facility] Past Medical History Medical History Failing root canal Social History Social History Alcohol intake: unknown Patient Tobacco Use Status: Never used Tobacco Advance Directives: No Advance Directives Information Provided: No Physical Exam ED Vital Signs: Vital Signs - 24 hr 06/15/22 20:54 Temperature 97 F Pulse Rate 92 Respiratory Rate 20 Blood Pressure 110/61 Pulse Oximetry 99 Oxygen Delivery Method Room Air BMI result Body Mass Index 20.7 Appearance: Alert. Oriented X3. No acute distress. Thin built Eyes: No pallor or icterus ENT: Pharynx normal. Oral Mucosa moist Neck: Normal inspection. Neck supple. CVS: Normal heart rate and rhythm. Pulses normal. Respiratory: No respiratory distress. Equal air entry bilateral, Abdomen: Soft , slight tenderness in epigastric area Paredes sign negative Bowel sounds are present, Skin: Skin warm and dry. Normal skin color. Normal skin turgor. Extremities: No lower extremity edema. No calf tenderness Neuro: Oriented X 3. No motor deficit. Medical Decision Making Medical Decision Making MDM Narrative: Patient nonspecific pain at this time no finding of cholecystitis patient has a follow-up plan with resource analyst and surgeon discharge patient home Medications Administered Discontinued Medications Generic Name Dose Route Start Last Admin Trade Name Freq PRN Reason Stop Dose Admin Dicyclomine HCl 20 mg 06/15/22 21:49 06/15/22 21:59 Dicyclomine Hcl 10 Mg Capsule PO 06/15/22 21:50 20 mg ONCE ONE Administration Omeprazole 40 mg 06/15/22 21:49 06/15/22 21:59 Omeprazole 40 Mg Capsule.Dr PO 06/15/22 21:50 40 mg ONCE ONE Administration Ondansetron HCl 4 mg 06/15/22 21:49 06/15/22 21:59 Ondansetron Odt 4 Mg Tab.Rapdis TRANSLINGU 06/15/22 21:50 4 mg ONCE ONE Administration Discharge Plan Discharge Clinical Impression: Abdominal pain, Chronic GERD Patient Disposition: Home, Self-Care Instructions: Gastroesophageal Reflux Disease (ED), Abdominal Pain (ED) Additional Instructions: Your ultrasound showed small 4 mm gallbladder polyp which is not causing the blockage No gallstones were seen Follow-up with resource analyst for further evaluation Avoid fried food, have small meals with lot of water Prescriptions: New pantoprazole [Protonix] 40 mg tablet,delayed release (DR/EC) 40 mg PO DAILY Qty: 30 0RF dicyclomine 20 mg tablet 20 mg PO QID PRN (Reason: abdominal pain) Qty: 20 0RF ondansetron 4 mg tablet,disintegrating 4 mg PO Q6-8H PRN (Reason: nausea and vomiting) Qty: 15 0RF No Action prednisone 50 mg tablet 50 mg PO DAILY Qty: 4 0RF famotidine [Pepcid AC] 20 mg tablet 20 mg PO DAILY Qty: 4 0RF ibuprofen 600 mg tablet 600 mg PO TID Qty: 20 0RF tramadol 50 mg tablet 50 mg PO TID PRN (Reason: pain) 3 Days Qty: 10 0RF ketorolac 10 mg tablet 10 mg PO TID PRN (Reason: pain) 5 Days Qty: 10 0RF Rx Instructions: Do not take ibuprofen with this medication, only oxycodone or Tylenol if needed oxycodone 5 mg tablet 5 mg PO Q8H PRN (Reason: pain) Qty: 7 0RF cefuroxime axetil 250 mg tablet 250 mg PO BID 7 Days Qty: 14 0RF Referrals: Jass Kaplan MD [Physician] - 1 week Interventions: ED Discharge Assessment Last Done: 06/15/22 22:03 Discharge Date/Time: 06/15/22 22:04
--- NOTE | 2022-06-15 21:38 | PC.NURSE ---
pt refusing labs, would like to leave. pt was here yesterday for same complaint and signed out AMA
--- NOTE | 2022-06-15 21:49 | PC.NURSE ---
per md, no labs need to be drawn at this time
[2022-06-15] MEDS: Dicyclomine HCl 10 MG CAPSULE 20 MG PO (21:59)
[2022-06-15] MEDS: Ondansetron ODT 4 MG TAB.RAPDIS TRANSLINGU (21:59)
[2022-06-15] MEDS: Omeprazole 40 MG CAPSULE.DR PO (21:59)
== END 2022-06-15 22:04 | disposition home or self-care (01) ==
PROVIDERS: Emergency Provider Internal Medicine
DX: K21.9 Gastro-esophageal reflux disease without esophagitis (principal); R07.89 Other chest pain; R10.11 Right upper quadrant pain; Z79.899 Other long term (current) drug therapy
CPT/HCPCS: 99282

== ENCOUNTER 2025-02-12 00:07 | Emergency (ER) | payer MEDICAID, SELFPAY ==
--- NOTE | ~2025-02-12 | CT_ITS ---
CLINICAL HISTORY: sudden onset of headache, SAH? PT 5 MONTHS , WAS ADVISED OF RISKS AND SIGNED CONSENT FORM CT head without contrast Comparison: None provided Findings: No intra-axial mass, midline shift, hydrocephalus, or acute hemorrhage. No significant atrophy-like change or white matter disease. There is no sinus or mastoid fluid. The orbits are within normal limits. No skull fracture. IMPRESSION: 1. No acute intracranial findings. This document has been electronically signed by: Luis Miguel Stock MD on 02/12/2025 02:02:15
[2025-02-12 00:19] VITALS: BP 116/57; PULSE 84; RESP 20; TEMP 36.5; O2SAT 99; BMI 26.4
[2025-02-12 00:40] VITALS: BP 101/55; PULSE 80; RESP 16; TEMP 36.5; O2SAT 99
[2025-02-12 00:40] LABS: MANUAL DIFF FLAG NO
[2025-02-12 00:42] LABS: Hematocrit 34.9 % (37.0-47.0); Hemoglobin 11.7 g/dl (12.0-16.0); Imm Gran Abs Auto 0.04 X10*3/uL (0.00-0.03); Imm Gran Pct Auto 0.4 % (0.0-0.4); Lymphocytes Absolute Auto 2.5 X10*3/uL (1.2-4.9); Mean Corpuscular HGB Conc 33.5 g/dl (31.0-35.0); Mean Corpuscular Hemoglobin 30.2 pg (27.0-33.0); Mean Corpuscular Volume 89.9 fL (80.0-98.0); NRBC Abs Auto 0.000 X10*3/uL (0.0-0.012); NRBC Pct Auto 0.0 /100WBC (0.0-0.2); Platelet Count 209 X10*3/uL (160-400); Red Blood Count 3.88 X10*6/uL (4.20-5.50); White Blood Count 9.9 X10*3/uL (4.8-10.8)
--- NOTE | 2025-02-12 00:57 | ED_ITS ---
HPI - Headache General Chief Complaint: Headache Stated Complaint: headache/ left hand is numb Time Seen by Provider: 02/12/25 00:47 Source: patient Mode of arrival: ambulatory Limitations: no limitations History of Present Illness ED Provider: DR. Horton HPI Narrative: 24-year-old female 21 weeks with no complication, patient with history of migraine presented today with sudden onset of headache started about 2 hours before presentation while she was trying to sleep, then patient started to feel left hand numbness patient got anxious and came to the emergency department for further evaluation, no known history or family history of strokes, cerebral aneurysm or intracranial bleed. Then patient started to vomit while she is in the emergency department, patient reported complete resolution of her left side numbness, and improvement of the headache. Otherwise patient declined photophobia, no LOC, no neck pain or stiffness, describes the pain as sudden onset but not a thunderclap. Patient follow with [facility] for her care considered low risk , No acute abdominal pain, no pelvic pain, no vaginal discharge, no vaginal bleeding. Related Data Previous Rx's ?Medication ?Instructions ?Recorded famotidine 20 mg tablet (Pepcid AC) 20 mg PO DAILY #4 tabs 01/17/21 prednisone 50 mg tablet 50 mg PO DAILY #4 tabs 01/17 ibuprofen 600 mg tablet 600 mg PO TID #20 tabs 03/22 tramadol 50 mg tablet 50 mg PO TID PRN pain 3 days #10 05/04/21 tabs ketorolac 10 mg tablet 10 mg PO TID PRN pain 5 days #10 05/07/21 tabs oxycodone 5 mg tablet 5 mg PO Q8H PRN pain #7 tabs 05/07/21 cefuroxime axetil 250 mg tablet 250 mg PO BID 7 days # 14 tabs 06/14/22 dicyclomine 20 mg tablet 20 mg PO QID PRN abdominal pain 06/15/22 #20 tabs ondansetron 4 mg disintegrating 4 mg PO Q6-8H PRN naus ea and 06/15/22 tablet vomiting #15 tabs pantoprazole 40 mg tablet,delayed 40 mg PO DAILY #30 t abs 06/15/22 release (Protonix) Allergies Allergy/AdvReac Type Severity Reaction Status Date / Time diphenhydramine (From Allergy Anaphylaxis Verified 02/12/25 00:25 Benadryl) sulfamethoxazole (From Allergy Anaphylaxis Verified 02/12/25 00:25 Bactrim) trimethoprim (From Bactrim) Allergy Anaphylaxis Verified 02/12/25 00:25 Review of Systems 2 Review of Systems: All other systems are reviewed and are negative Constitutional: Reports as per HPI and Reports no additional constitutional complaints Eyes: Reports as per HPI and Reports no additional eye complaints Reports system reviewed and no additional complaints, except as documented Cardiovascular: Reports as per HPI and Reports no additional cardiovascular complaints Respiratory: Reports as per HPI and Reports no additional respiratory complaints Gastrointestinal: Reports as per HPI and Reports no additional gastrointestinal complaints Genitourinary: Reports no additional female genitourinary complaints Musculoskeletal: Reports no additional musculoskeletal complaints Skin/Breast: Reports system reviewed and no additional complaints, except as docu Psychiatric: Reports no additional psychiatric complaints Endocrine: Reports no additional endocrine complaints Hematologic/Lymphatic: Reports no additional hematologic/lymphatic complaints Allergic/Immunologic: Reports no additional allergic/immunologic complaints Reports system reviewed and no additional complaints, except as documented and Reports Abnormal speech present [facility] Past Medical History Medical History Failing root canal Social History Social History Alcohol intake: unknown Patient Tobacco Use Status: Never used Tobacco Smoked in Last 30 Days: No Use of substances other than those prescribed or required for medical reasons: No Advance Directives: No Patient : Yes Physical Exam 2 Vital Signs: Vital Signs: Last Vital Signs Temp 97.7 F 02/12/25 00:40 Pulse 80 02/12/25 00:40 Resp 16 02/12/25 00:40 BP 101/55 L 02/12/25 00:40 Pulse Ox 99 02/12/25 00:40 O2 Del Method Room Air 02/12/25 00:40 BMI result Body Mass Index 26.4 Vital signs have been reviewed and appear to be correct. Blood pressure elevated. Heart rate normal. Respiratory rate normal. Temperature normal. Oxygen saturation normal. Appearance: Alert. Oriented X3. No acute distress. Head: Normal external exam. Normocephalic. Atraumatic. No Rowan signs noted. No raccoon eyes noted Eyes: PERRLA. EOMI. Conjunctiva and sclera normal. Eyelids normal. ENT: TM's Normal. Pharynx normal. Uvula midline. Moist mucous membranes. No trismus noted. No drooling noted. No muffled voice noted. Neck: Normal inspection. Neck supple. FROM. No adenopathy. Thyroid Normal. No meningeal signs. No neck mass noted. CVS: Normal heart rate and rhythm. Heart sound normal. No murmurs noted. Pulses normal throughout. Respiratory: No respiratory distress. Painless inspiration. Breath sounds normal. No wheezes/rales/rhonchi noted. Chest nontender. No accessory muscle usage noted or decreased air movement noted. Abdomen: Soft and nontender. Bowel sounds normal in all 4 quadrants. No distention noted. No organomegaly noted. No visible injury noted. Back: No CVA tenderness. Full range of motion noted. Skin: Skin warm and dry. Normal skin color. Normal skin turgor. No rashes/lesions/lacerations noted. Extremities: No lower extremity edema. Extremities exhibit normal range of motion. Extremities nontender. Neuro: Mental status: Normal attention, orientation, memory, and affect. Cranial nerves: Pupils are equal, round and reactive to light, EOMI, visual mendez are fall, face is symmetric, facial sensations are normal. Motor examination normal muscle tone, strength to 4 extremities. DTR are +2, planter's are flexor. Sensory exam; normal coordination, no ataxia, gait stable. Cerebellar exam: [id number] and effp-bl-[id number] is normal. Extrapyramidal system: No tremors, no rigidity with normal facial expressions. Pronator drift not present NIH Stroke Scale Time: 01:05 Level of Consciousness: Alert Level of Consciousness Questions: Answers both questions correctly Level of Consciousness Commands: Performs both tasks correctly Best Gaze: Normal Visual: No visual loss Facial Palsy: Normal Motor Arm (Right): No drift Motor Arm (Left): No drift Motor Leg (Right): No drift Motor Leg (Left): No drift Limb Ataxia: Absent Sensory: Normal Best Language: No aphasia Dysarthia: Normal Extinction and Inattention: No abnormality Score: 0 Course Reevaluation(s) Reevaluation #1: 24-year-old female 21 weeks came in with a sudden onset of severe headache associated with nausea and vomiting, symptoms started 2 hours prior to presentation, head CT is negative for subarachnoid hemorrhage, patient is receiving IV fluids and Zofran for the headache reports some improvement of her symptoms. Repeat neuro exam is unremarkable Time: 01:40 Reevaluation #2: patient reports complete resolution of headache And left-sided numbness, unremarkable labs and head CT repeat neuro exam unremarkable, along with normal serial neuro exams, patient reports that she is back to her baseline with almost complete resolution of her symptoms. Time: 02:10 Medications Administered Discontinued Medications Generic Name Dose Route Start Last Admin Trade Name Anh PRN Reason Stop Dose Admin Sodium Chloride 1,000 mls @ 999 mls/hr 02/12/25 00:55 02/12/25 01:51 Ns IV 02/12/25 01:55 Infused .Q1H1M ONE Infusion Acetaminophen 1,000 mg in 100 mls @ 400 mls/hr 02/12/25 00:55 02/12/25 01:51 Ofirmev IV 02/12/25 01:09 Infused ONCE ONE Infusion Ondansetron HCl 4 mg 02/12/25 00:55 02/12/25 01:11 Ondansetron Hcl 4 Mg/2 Ml Vial IVPUSH 02/12/25 00:56 4 mg ONCE ONE Administration Medical Decision Making Differential Diagnosis Differential Diagnoses: The differential diagnosis associated with the presentation includes ( Acute SAH, migraine, hyperemesis, electrolyte derangement, severe anemia, dehydration, viral illness.) Admission/Observation Consideration of admission/observation: Escalation of care including admission/observation considered Lab Data MDM Lab Attestation statement: I reviewed the patient's lab results. 02/12/25 00:36 02/12/25 00:36 Labs: Lab Results 02/12/25 Range/Units 00:36 WBC 9.9 (4.8-10.8) X10*3/uL RBC 3.88 L (4.20-5.50) X10*6/uL Hgb 11.7 L (12.0-16.0) g/dl Hct 34.9 L (37.0-47.0) % MCV 89.9 (80.0-98.0) fL MCH 30.2 (27.0-33.0) pg MCHC 33.5 (31.0-35.0) g/dl RDW 12.3 (11.0-16.0) % Plt Count 209 (160-400) X10*3/uL MPV 10.6 (9.4-12.3) fL Immature Gran % (Auto) 0.4 (0.0-0.4) % Neut % (Auto) 66.3 (45-73) % Lymph % (Auto) 25.1 (20-40) % [place] % (Auto) 7.2 (2-11) % Eos % (Auto) 0.8 (0-4) % Baso % (Auto) 0.2 (0-2) % Lymph # (Auto) 2.5 (1.2-4.9) X10*3/uL [place] # (Auto) 0.7 (0.1-1.2) X10*3/uL Eos # (Auto) 0.1 (0.0-0.4) X10*3/uL Baso # (Auto) 0.0 (0.0-0.2) X10*3/uL Abs Immat Gran (auto) 0.04 H (0.00-0.03) X10*3/uL Absolute Neuts (auto) 6.5 (2.0-8.3) x10*3/uL Absolute Nucleated RBC 0.000 (0.0-0.012) X10*3/uL Nucleated RBC % (auto) 0.0 (0.0-0.2) /100WBC Sodium 137 (135-145) mmol/L Potassium 3.9 (3.3-5.1) mmol/L Chloride 104 (96-108) mmol/L Carbon Dioxide 25 (22-29) mmol/L Anion Gap 12 (12-20) BUN 10 (9-16) mg/dL Creatinine 0.56 (0.5-1.4) mg/dL Estim Creat Clear Calc 131.1 Estimated GFR > 60 Random Glucose 94 (60-115) mg/dL Calcium 8.5 D (8.4-10.2) mg/dL Total Bilirubin 0.4 (0.0-1.0) mg/dL AST 20 (5-31) U/L ALT 11 (0-31) U/L Alkaline Phosphatase 61 (39-117) U/L Total Protein 7.1 (6.5-8.0) g/dL Albumin 3.8 (3.5-5.0) g/dL Beta HCG, Quant 52362 mIU/mL COVID-19 (MATY) Negative (Negative) COVID-19 Clin Com See Note Influenza Type A (YADIEL) Negative (Negative) Influenza Type B (YADIEL) Negative (Negative) Influenza A & B Note See Note Independent Interpretation I performed an independent interpretation of an: CT Scan ( Head CT: No acute intracranial pathology.) Radiology Impression Discussion of test interpretation with radiology: I have reviewed the radiologist's reading. Critical Care Time Critical Care Time Critical Care Time: Yes Total Critical Care Time: 40 Attestation: The patient was critically ill with a high probability of imminent or life- threatening deterioration. I spent greater than 30 minutes of discontinuous time evaluating the patient, delivering critical care at the bedside, discussing evaluating data with consultants. Critical care time does not include time spent performing separately billable procedures or teaching. Time spent performing critical care was 40 minutes. Discharge Plan Discharge Clinical Impression: Migraine Patient Disposition: Home, Self-Care Instructions: Migraine Headache (ED) Prescriptions: No Action prednisone 50 mg tablet 50 mg PO DAILY Qty: 4 0RF famotidine [Pepcid AC] 20 mg tablet 20 mg PO DAILY Qty: 4 0RF ibuprofen 600 mg tablet 600 mg PO TID Qty: 20 0RF tramadol 50 mg tablet 50 mg PO TID PRN (Reason: pain) 3 Days Qty: 10 0RF ketorolac 10 mg tablet 10 mg PO TID PRN (Reason: pain) 5 Days Qty: 10 0RF Rx Instructions: Do not take ibuprofen with this medication, only oxycodone or Tylenol if needed oxycodone 5 mg tablet 5 mg PO Q8H PRN (Reason: pain) Qty: 7 0RF cefuroxime axetil 250 mg tablet 250 mg PO BID 7 Days Qty: 14 0RF pantoprazole [Protonix] 40 mg tablet,delayed release (DR/EC) 40 mg PO DAILY Qty: 30 0RF dicyclomine 20 mg tablet 20 mg PO QID PRN (Reason: abdominal pain) Qty: 20 0RF ondansetron 4 mg tablet,disintegrating 4 mg PO Q6-8H PRN (Reason: nausea and vomiting) Qty: 15 0RF Print Language: Kyrgyz
[2025-02-12 01:01] LABS: COVID-19 Test Negative (Negative); IDNOW Serial# 55D5AD1C; IDNOW Serial# 58CA691E; Influenza B2 Negative (Negative)
[2025-02-12 01:17] LABS: Alanine Aminotransferase 11 U/L (0-31); Albumin Level 3.8 g/dL (3.5-5.0); Alkaline Phosphatase 61 U/L (39-117); Anion Gap 12 (12-20); Aspartate Amino Transferase 20 U/L (5-31); Blood Urea Nitrogen 10 mg/dL (9-16); Calcium 8.5 mg/dL (8.4-10.2); Carbon Dioxide 25 mmol/L (22-29); Chloride 104 mmol/L (96-108); Creatinine Clr Calc Pharmacy 131.1; Estimated Glomerular Filt Rate > 60; Potassium 3.9 mmol/L (3.3-5.1); Sodium 137 mmol/L (135-145); Total Protein 7.1 g/dL (6.5-8.0)
--- OUTSIDE RECORDS SUMMARY | 2025-02-12 01:23 | XMS_ITS | Encounter Summary ---
Author Organization [facility] Address [address] [place] [address] Care Team Providers Care Director Of Institutional Research Name Role Phone Jaja Castañeda MD Primary Care Provider Unavailab Lea, Pcp Primary Care Provider Unavaildeyanira e Mando Reyes MD Primary Care Provider Un available Rosy Ríos DO Primary Care Pro vider Unavailable Rock Yancey MD Primary Care Provider Amparo Rogers MD Primary Care Provider [phone] Encounter Details Date Type Department Care Team Description 09/30/2012 [employer] Promotional Sales Report Medical Records [address] [place] [id number] Edie Jones Social History Tobacco Use Types Packs/Day Years Used Date Smoking Tobacco: Never Comments:dad quit mom smokes outside only Alcohol Use Standard Drinks/Week Comments Not Asked 0 (1 standard drink = 0.6 oz pur e alcohol) Sex Assigned at Date Recorded Not on file Job Start Date Occupation Industry Not on file Not on file Not on file documented as of this encounter Plan of Treatment Not on file documented as of this encounter Visit Diagnoses Not on filedocumented in this encounter Care Teams Director Of Institutional Research Relationship Specialty Start Date End Date Jaja Castañeda MD PCP - General Pediatrics 03/03/12 06/10/18 [facility], Pcp PCP - General Internal Medicine 06/11/18 07/21/18 Mando Reyes MD PCP - General Internal Medicine 07/22/18 Rosy Ríos, DO PCP - General Internal Medicine 06/17/19 03/25/21 Rock Yancey MD PCP - General Internal Medicine 03/26/21 02/04/22 Amparo Amaya MD [address] [place] [id number] PCP - General Internal Medicine 02/05/22 documented as of this encounter
--- OUTSIDE RECORDS SUMMARY | 2025-02-12 01:23 | XMS_ITS | Encounter Summary ---
Author Organization [facility] Address [address] [place] [address] Care Team Providers Care Golf Club Head Former Name Role Phone Grace Vivas MD Primary Care Provider Jaja Angela MD Primary Care Provider [facility], Pcp Primary Care Provider Mando Kidd MD Primary Care Provider Un available Rosy Ríos DO Primary Care Pro vider Unavailable Rock Yancey MD Primary Care Provider Amparo Rogers MD Primary Care Provider Encounter Details Date Type Department Care Team Description 11/14/2011 [employer] Supervisor Report Medical Records [address] [place] [id number] Amirah Calderon Social History Tobacco Use Types Packs/Day Years [...] on filedocumented in this encounter Care Teams Golf Club Head Former Relationship Specialty Start Date End Date Grace Vivas MD PCP - General Pediatrics 06/24/11 03/02/12 Jaja Castañeda MD PCP - General Pediatrics 03/03/12 06/10/18 [facility], Pcp PCP - General Internal Medicine 06/11/18 07/21/18 Mando Reyes MD PCP - General Internal Medicine 07/22/18 Rosy Ríos DO PCP - General Internal Medicine 06/17/19 03/25/21 Rock Yancey MD PCP - General Internal Medicine 03/26/21 02/04/22 Amparo Amaya MD [address] [place] [id number] PCP - General Internal Medicine 02/05/22 documented as of this encounter
--- OUTSIDE RECORDS SUMMARY | 2025-02-12 01:23 | XMS_ITS | Encounter Summary ---
Author Organization [facility] Address [address] [place] [address] Care Team Providers Care Test Case Developer Name Role Phone Grace Vivas MD Primary Care Provider Jaja Angela MD Primary Care Provider [facility], Pcp Primary Care Provider Mando Kidd MD Primary Care Provider Un available Rosy Ríos DO Primary Care Pro vider Unavailable Rock Yancey MD Primary Care Provider Amparo Rogers MD Primary Care Provider [phone] Encounter Details Date Type Department Care Team Description 02/07/2012 Waste Transportation Technician Report Medical Records [address] [place] [address] Ethan Botello Social History Tobacco Use Types Packs/Day Years [...] on filedocumented in this encounter Care Teams Test Case Developer Relationship Specialty Start Date End Date Grace Vivas MD PCP - General Pediatrics 06/24/11 03/02/12 Jaja Castañeda MD PCP - General Pediatrics 03/03/12 06/10/18 [facility], Pcp PCP - General Internal Medicine 06/11/18 07/21/18 Mando Reyes MD PCP - General Internal Medicine 07/22/18 Rosy Ríos DO PCP - General Internal Medicine 06/17/19 03/25/21 Rock Yancey MD PCP - General Internal Medicine 03/26/21 02/04/22 Amparo Amaya MD [address] [place] [id number] PCP - General Internal Medicine 02/05/22 documented as of this encounter
--- OUTSIDE RECORDS SUMMARY | 2025-02-12 01:23 | XMS_ITS | Encounter Summary ---
Author Organization [facility] Address [address] [place] [address] Care Team Providers Care Pest Control Service Sales Agent Name Role Phone Jaja Castañeda MD Primary Care Provider Unavailab Lea, Pcp Primary Care Provider UnavailMando Celestin MD Primary Care Provider Un available Rosy Ríos DO Primary Care Pro vider Unavailable Rock Yancey MD Primary Care Provider Amparo Rogers MD Primary Care Provider [phone] Encounter Details Date Type Department Care Team Description 03/18/2016 Release of Information Medical Records [address] [place] [id number] Abstract, Provider Social History Tobacco Use Types Packs/Day Years Used Date Smoking Tobacco: Never Comments:dad and mom smokes outside only Alcohol Use Standard Drinks/Week Comments No 0 (1 standard drink = 0.6 oz pur e alcohol) Sex Assigned at Date Recorded Not on file Job Start Date Occupation Industry Not on file Not on file Not on file documented as of this encounter Plan of Treatment Not on file documented as of this encounter Visit Diagnoses Not on filedocumented in this encounter Care Teams Pest Control Service Sales Agent Relationship Specialty Start Date End Date Jaja Castañeda MD PCP - General Pediatrics 03/03/12 06/10/18 [facility], Pcp PCP - General Internal Medicine 06/11/18 07/21/18 Mando Reyes MD PCP - General Internal Medicine 07/22/18 Rosy Ríos DO PCP - General Internal Medicine 06/17/19 03/25/21 Rock Yancey MD PCP - General Internal Medicine 03/26/21 02/04/22 Amparo Amaya MD [address] [place] [id number] PCP - General Internal Medicine 02/05/22 documented as of this encounter
--- OUTSIDE RECORDS SUMMARY | 2025-02-12 01:23 | XMS_ITS | Encounter Summary ---
Author Organization [facility] Address [address] [place] [address] Care Team Providers Care Director Market Research Name Role Phone Grace Vivas MD Primary Care Provider Jaja Angela MD Primary Care Provider [facility] Primary Care Provider UnavailMando Celestin MD Primary Care Provider Un available Rosy Ríos DO Primary Care Pro vider Unavailable Rock Yancey MD Primary Care Provider Amparo Rogers MD Primary Care Provider [phone] Reason for Visit * Reason Comments E-prescribe Rx Request Encounter Details Date Type Department Care Team Description 12/01/2011 Refill Pediatrics - [address] [address] Grace Vivas MD E-prescribe Rx Request Social History Tobacco Use Types Packs/Day Years Used Date Smoking Tobacco: Never Comments:dad quit mom smokes outside only Alcohol Use Standard Drinks/Week Comments Not Asked 0 (1 standard drink = 0.6 oz pur e alcohol) Sex Assigned at Date Recorded Not on file Job Start Date Occupation Industry Not on file Not on file Not on file documented as of this encounter Miscellaneous Notes * Telephone Encounter - Mary Stephens - 12/02/2011 8:18 AM EDT When was patients last PE/WCC? 11/03/11 When is patients next PE/WCC scheduled? Due 10/2012 Grace Vivas MD RX REQUEST WHEN MED IS ON THE LIST: One or some of the medications requested were on the HISTORICAL MED list Did you check the Pharmacy information above?: YES Indicate how soon the patient needs the script: BY THE END OF THE DAY Patient would like script to be: E-PRESCRIBED/FAXED TO PHARMACY Is the doctor here today?: YES Can the message wait until the doctor returns?: NO Has the patient been told that the prescription will not be filled until the end of the day? NO Grace Vivas MD Payor: [employer] FFS Plan: FFS HMO $0 [employer] [id number] Product Type: MEDICAID RISK documented in this encounter Plan of Treatment Not on file documented as of this encounter Visit Diagnoses Not on filedocumented in this encounter Care Teams Director Market Research Relationship Specialty Start Date End Date Grace Vivas MD PCP - General Pediatrics 06/24/11 03/02/12 Jaja Castañeda MD PCP - General Pediatrics 03/03/12 06/10/18 [facility], Pcp PCP - General Internal Medicine 06/11/18 07/21/18 Mando Reyes MD PCP - General Internal Medicine 07/22/18 Rosy Ríos DO PCP - General Internal Medicine 06/17/19 03/25/21 Rock Yancey MD PCP - General Internal Medicine 03/26/21 02/04/22 Amparo Amaya MD [address] [place] [id number] PCP - General Internal Medicine 02/05/22 documented as of this encounter
--- OUTSIDE RECORDS SUMMARY | 2025-02-12 01:23 | XMS_ITS | Encounter Summary ---
Author Organization [facility] Address [address] [place] [address] Care Team Providers Care Steam Station Supervisor Name Role Phone Ness Sue MD Primary Care Provider UnavailNess Tracy MD Primary Care Provider UnavailNess Tracy MD Primary Care Provider Unavailabl e Grace Vivas MD Primary Care Provider Jaja Angela MD Primary Care Provider Unavailab [facility], Pcp Primary Care Provider Unavaildeyanira e Mando Reyes MD Primary Care Provider Un available Rosy Ríos DO Primary Care Pro vider Unavailable Rock Yancey MD Primary Care Provider Amparo Rogers MD Primary Care Provider [phone] Encounter Details Date Type Department Care Team Description 02/11/2005 Orders Only Pediatrics [address] [address] Kyung Gruber RNCPNP DIABETES MELLITUS TYPE II-UNCOMPL (Primary Dx) Social History Tobacco Use Types Packs/Day Years Used Date Smoking Tobacco: Never Assessed Sex Assigned at Date Recorded Not on file Job Start Date Occupation Industry Not on file Not on file Not on file documented as of this encounter Plan of Treatment Scheduled Orders Name Type Priority Associated Diagnoses Orde r Schedule VENIPUNCTURE Lab Routine Diabetes Mellitus Type Ii-Uncompl Ordered: 02/11/2005 documented as of this encounter Procedures Procedure Name Priority Date/Time Associated Diagnosis Comments CBC WITHOUT DIFF Routine 02/11/2005 1:10 PM EDT Diabetes Mellitus Type Ii-Uncompl LEAD, CHILD Routine 02/11/2005 1:10 PM EDT Diabetes Mellitus Type Ii-Uncompl CHG GLUCOSE QUANTITATIVE BLOOD XCPT REAGENT STRIP Routine 02/11/2005 1:10 PM EDT Diabetes Mellitus Type Ii-Uncompl documented in this encounter Results * LEAD, CHILD (02/11/2005 1:10 PM EDT) COLLECTION SAMPLE: Venous [facility] LEAD, CHILD 3 0 - 9 mcg/dL [facility] Comment: Interpretation of Pediatric Lead Results: <10 ug/dl Concentration levels in this range are below the threshold of concern. 10-19 ug/dl Concentrations in this range are above the threshold of concern. Initial elevations should be confirmed with venous blood within 3 months. >=20 ug/dl Children with levels in this range will be enrolled in the Lead Program's case management system. Initial elevations should be confirmed with venous blood in 1-3 weeks. ZPP Concentration >=35 ug/dl Indicates impairment of the bio synthetic pathway. Test performed @ [facility] [place] 02/11/2005 1:10 PM EDT 02/11/2005 1:12 PM EDT Kyung Gruber RNCPNP LAB Performing Organization Address [facility]/ZIP Co de Phone Number [facility] * GLUCOSE, BLOOD (02/11/2005 1:10 PM EDT) GLUCOSE 83 70 - 110 mg/dL [facility] 02/11/2005 1:10 PM EDT 02/11/2005 1:12 PM EDT Kyung Gruber RNCPNP LAB [facility] * (ABNORMAL) CBC WITHOUT DIFF (02/11/2005 1:10 PM EDT) WHITE BLOOD COUNT 7.3 5.0 - 16.0 x10-3 [facility] RED BLOOD COUNT 5.5(H) 3.9 - 5.3 x10-6 [facility] Hemoglobin 13.7(H) 11.5 - 13.5 g/dL [facility] Hematocrit 40.4(H) 34 - 40 % [facility] MEAN CORPUSCULAR VOLUME 73.7(L) 75 - 87 fl [facility] MEAN CORPUSCULAR HEMOGLOBIN 25.0(L) 27 - 32 pg [facility] MEAN CORPUSCULAR HGB CONC 33.9 32 - 37 g/dl [facility] RED CELL DISTRIBUTION WIDTH 12.8 11 - 15 % [facility] PLT COUNT 245 130 - 400 x10-3 [facility] 02/11/2005 1:10 PM EDT 02/11/2005 1:12 PM EDT Kyung Gruber RNCPNP LAB Performing Organization Address City/State/[facility] Co de Phone Number [facility] documented in this encounter Visit Diagnoses Diagnosis Type II or unspecified type diabetes mellitus without mention of complication, not stated as uncontrolled- Primary documented in this encounter Care Teams Steam Station Supervisor Relationship Specialty Start Date End Date Ness Sue MD PCP - General 03/19/00 06/15/11 Ness Sue MD PCP - General Pediatrics 06/16/11 06/17/11 Ness Sue MD PCP - General Pediatrics 06/18/11 06/23/11 Grace Vivas MD PCP - General Pediatrics 06/24/11 03/02/12 Jaja Castañeda MD PCP - General Pediatrics 03/03/12 06/10/18 [facility], Pcp PCP - General Internal Medicine 06/11/18 07/21/18 Mando Reyes MD PCP - General Internal Medicine 07/22/18 Rosy Ríos DO PCP - General Internal Medicine 06/17/19 03/25/21 Rock Yancey MD PCP - General Internal Medicine 03/26/21 02/04/22 Amparo Amaya MD [address] [place] [address] PCP - General Internal Medicine 02/05/22 documented as of this encounter
--- OUTSIDE RECORDS SUMMARY | 2025-02-12 01:23 | XMS_ITS | Encounter Summary ---
Author Organization [facility] Address [address] [place] [address] Care Team Providers Care Brick Burner Head Name Role Phone Jaja Castañeda MD Primary Care Provider [facility], Pcp Primary Care Provider Mando iKdd MD Primary Care Provider Un available Rosy Ríos DO Primary Care Pro vider Unavailable Rock Yancey MD Primary Care Provider Amparo Rogers MD Primary Care Provider [phone] Reason for Visit * Reason Onset Date Comments TEST RESULTS 03/12/2016 Encounter Details Date Type Department Care Team Description 03/12/2016 Telephone Pediatrics - [address] [address] Jaja Castañeda MD TEST RESULTS Social History Tobacco Use Types Packs/Day Years [...] encounter Miscellaneous Notes * Telephone Encounter - Sydnie Solomon - 03/12/2016 2:30 PM EDT Inform patient: ANY URGENT OR ABNORMAL RESULTS WIILL RESULT IN A CALL BACK TO THE PATIENT FERNANDA. Type of test: :MRI Date test was performed: 03/11/16 Where was the test performed: [facility] Who ordered this test?: Dr. Castañeda Is the doctor here today?: NO Can the message wait until the doctor returns?: NO IF PATIENT'S PCP IS NOT IN INSTRUCT PATIENT THAT THEY WILL RECEIVE A CALL BACK WHEN THE PCP IS IN THE OFFICE NEXT. documented in this encounter Plan of Treatment Not on file documented as of this encounter Visit Diagnoses Not on filedocumented in this encounter Care Teams Brick Burner Head Relationship Specialty Start Date End Date Jaja Castañeda MD PCP - General Pediatrics 03/03/12 06/10/18 [facility], Pcp PCP - General Internal Medicine 06/11/18 07/21/18 Mando Reyes MD PCP - General Internal Medicine 07/22/18 Rosy Ríos DO PCP - General Internal Medicine 06/17/19 03/25/21 Rock Yancey MD PCP - General Internal Medicine 03/26/21 02/04/22 Amparo Amaya MD [address] [place] [address] PCP - General Internal Medicine 02/05/22 documented as of this encounter
--- OUTSIDE RECORDS SUMMARY | 2025-02-12 01:24 | XMS_ITS | Encounter Summary ---
Author Organization [facility] Address [address] [place] [address] Care Team Providers Care Per Diem Registered Nurse Name Role Phone Amparo Amaya MD Primary Care Provider [phone] Encounter Details Date Type Department Care Team Description 11/13/2022 Hospital Medical Records [address] [place] [address] Josi Leo MD [address] [place] [address] Social History Tobacco Use Types Packs/Day Years Used Date Smoking Tobacco: Former Cigarettes Vapor Passive Smoke Exposure: Never Smokeless Tobacco: Never Comments:dad and mom smokes outside only Alcohol Use Standard Drinks/Week Comments Not Currently 0 (1 standard drink = 0.6 oz pur e alcohol) occ Sex Assigned at Date Recorded Not on file Job Start Date Occupation Industry Not on file Not on file Not on file COVID-19 Exposure Response Date Recorded In the last 10 days, have suly u been in contact with someone who was confirmed or suspected to have Coronavirus/COVID-19? No / Unsure 11/06/2022 10:38 AM EDT documented as of this encounter Plan of Treatment Not on file documented as of this encounter Visit Diagnoses Not on filedocumented in this encounter Care Teams Per Diem Registered Nurse Relationship Specialty Start Date End Date Amparo Amaya MD [address] [place] [address] PCP - General Internal Medicine 02/05/22 documented as of this encounter
--- OUTSIDE RECORDS SUMMARY | 2025-02-12 01:24 | XMS_ITS | Encounter Summary ---
Author Organization [facility] Address [address] [place] [address] Care Team Providers Care Service Or Work Dispatcher Chief Name Role Phone Amparo Amaya MD Primary Care Provider [phone] Reason for Visit * Reason Onset Date Comments swelling 02/10/2025 Encounter Details Date Type Department Care Team ([facility] Contact Info) Description 02/10/2025 Telephone Adult Medicine [address] [phone] Amparo Amaya MD [address] [place] [address] Social History Tobacco Use Types Packs/Day Years Used Date Smoking Tobacco: Former Smokeless Tobacco: Never Alcohol Use Standard Drinks/Week Comments Not Currently 0 (1 standard drink = 0.6 oz pur e alcohol) Estimated Date of Delivery Comme nts Yes 06/27/2025 Based on Ultraso und Sex and Gender Information Value Date Recorded Sex Assigned at Not on file Legal Sex Female 10:29 AM EST Gender Identity Female 07/18/2024 10:37 AM EST Sexual Orientation Not on file Occupation Industry Job Start Date Job End Date unemployed Not on file Not on file Not on file documented as of this encounter Progress Notes * Larissa Gerardo RN - 02/10/2025 11:45 AM EDT Pt is 5 months she is seen at [facility] , at last visit last week she was told her labs were abnormal and she should see PCP ( ca .co 2 albumin and creatinine low ) Pt has had a headache for several weeks, this is not worst headache ever and she has no dizziness weakness or change in vision, she has some swelling in her fingers, none in face or hands , she also has not had any appetite ( has gained #40 pounds during ) OB told pt these symptoms not related to Pt to see ramakrishna hernandez 02/14 Advised homecare following the headache Protocol. RN reinforced telephone consultation and advice. Reviewed with the patient the signs and symptoms to watch for that would require immediate attention. If symptoms change, worsen or increase in intensity, to call back immediately. * Rachelle Pina - 02/10/2025 11:33 AM EDT Patient call requires triage: Symptoms patient is presenting: c/o hand swelling, headaches, fatigue. Pt is 5 months How long has patient had these symptoms?: a few weeks For ALL patients calling to schedule any appointment (routine, sick visit, follow up, consult, etc.) in the outpatient setting please ask the following questions: Do you have fever of higher than 101, sore throat with difficulty swallowing or severe shortness ofbreath? no If YES to any of these above symptoms, send a message to triage and do not book. Red dot. If no, an audio or video visit should be booked. Have you had close contact with someone with Coronavirus in the last 14 days? no Have you traveled abroad? no Have you traveled recently to another state outside of [place], [place], [place], [place], [place], [place], [place]? no o If yes, did you quarantine for 14 days or have a negative covid test? no If yes to any of the above, patient is not to be scheduled in office until after 14 day quarantine or negative covid test. If pain or injury related was it due to an accident at work or from a motor vehicle accident? If yes, date of accident/Injury: No If yes, gather 3rd democrat insurance information Third Democrat Information: not applicable PCP: Amparo Amaya MD Pay[place] / Plan[place] / Product Type: *No Product type* / documented in this encounter Plan of Treatment Upcoming Encounters Date Type Department Care Team (Late st Contact Info) Description 02/14/2025 10:00 AM EDT Office Visit Adult Medicine [address] [phone] Anton Hernandez PA [address] [place] [address] documented as of this encounter Visit Diagnoses Not on filedocumented in this encounter Care Teams Service Or Work Dispatcher Chief Relationship Specialty Start Date End Date Amparo Amaya MD [address] [place] [address] PCP - General Internal Medicine 02/05/22 documented as of this encounter
--- OUTSIDE RECORDS SUMMARY | 2025-02-12 01:24 | XMS_ITS | Encounter Summary ---
Author Organization [facility] Address [address] [place] [address] Care Team Providers Care Upsetter Helper Name Role Phone Jaja Castañeda MD Primary Care Provider [facility], Pcp Primary Care Provider Mando Kidd MD Primary Care Provider Un available Rosy Ríos DO Primary Care Pro vider Unavailable Rock Yancey MD Primary Care Provider Amparo Rogers MD Primary Care Provider [phone] Reason for Visit * Reason Onset Date Comments medication problems 07/09/2016 Encounter Details Date Type Department Care Team Description 07/09/2016 Telephone Pediatrics - [address] [address] Jaja Castañeda MD medication problems Social History Tobacco Use Types Packs/Day Years [...] encounter Miscellaneous Notes * Telephone Encounter - Renetta Grajeda - 07/09/2016 2:01 PM EST Signs/Symptoms: Pt seen, pharmacy states insurance will only cover the capsules for the omeprizole , will need a new script Duration of symptoms: Pt seen today Temperature: N/a Allergies: Bactrim Any chronic illnesses: Patient Active Problem List Diagnosis Code ??? Headache R51 ??? Disturbance in sleep behavior G47.9 ??? 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 Dysthymia F34.1 ??? Refused influenza vaccine Z28.21 Is the child taking any medications: Current Outpatient Prescriptions Medication Sig Dispense Refill ??? sertraline (ZOLOFT) 50 MG tablet 1/2 tablet for the first week, then 1 tablet a day 30 Tab 1 ??? hydrOXYzine (ATARAX) 10 MG tablet Take 1 Tab by mouth at bedtime. 30 Tab 1 ??? omeprazole (PRILOSEC OTC) 20 MG tablet Take 1 Tab by mouth daily as needed (stomach upset, consumption of greasy, spicy foods). 30 Tab 1 ??? tretinoin (RETIN-A) 0.025 % cream Apply a pea sized amount to affected skin, spread evenly. Start by using once a week and increase frLeave on overnight. Apply a non comedogenic moisturizer with the cream 45 g 3 No current facility-administered medications for this visit. documented in this encounter Plan of Treatment Not on file documented as of this encounter Visit Diagnoses Not on filedocumented in this encounter Care Teams Upsetter Helper Relationship Specialty Start Date End Date Jaja Castañeda MD PCP - General Pediatrics 03/03/12 06/10/18 [facility], Pcp PCP - General Internal Medicine 06/11/18 07/21/18 Mando Reyes MD PCP - General Internal Medicine 07/22/18 Rosy Ríos DO PCP - General Internal Medicine 06/17/19 03/25/21 Rock Yancey MD PCP - General Internal Medicine 03/26/21 02/04/22 Amparo Amaya MD [address] [place] [address] PCP - General Internal Medicine 02/05/22 documented as of this encounter
--- OUTSIDE RECORDS SUMMARY | 2025-02-12 01:24 | XMS_ITS | Encounter Summary ---
Author Organization [facility] Address [address] [place] [address] Care Team Providers Care Entry Level Administrative Assistant Name Role Phone Rock Yancey MD Primary Care Provider Amparo Rogers MD Primary Care Provider [phone] Encounter Details Date Type Department Care Team Description 11/08/2021 Hospital Medical Records [address] [place] [address] Josi Leo MD [address] [place] [address] Social History Tobacco Use Types Packs/Day Years [...] Recorded In the last 10 days, have yo u been in contact with someone who was confirmed or suspected to have Coronavirus/COVID-19? No / Unsure 11/04/2021 2:55 PM EDT documented as of this encounter Plan of Treatment Not on file documented as of this encounter Visit Diagnoses Not on filedocumented in this encounter Care Teams Entry Level Administrative Assistant Relationship Specialty Start Date End Date Rock Yancey MD PCP - General Internal Medicine 03/26/21 02/04/22 Amparo Amaya MD [address] [place] [address] PCP - General Internal Medicine 02/05/22 documented as of this encounter
--- OUTSIDE RECORDS SUMMARY | 2025-02-12 01:24 | XMS_ITS | Encounter Summary ---
Author Organization [facility] Address [address] [place] [address] Care Team Providers Care Excel Analyst Name Role Phone Jaja Castañeda MD Primary Care Provider Unavailab [facility], Pcp Primary Care Provider UnavailMando Celestin MD Primary Care Provider Un available Rosy Ríos DO Primary Care Pro vider Unavailable Rock Yancey MD Primary Care Provider Amparo Rogers MD Primary Care Provider [phone] Encounter Details Date Type Department Care Team Description 09/17/2017 Diesel Engine Pipe Fitter Report Medical Records [address] [place] [id number] Abstract, Provider Social History Tobacco Use Types Packs/Day Years Used Date Smoking Tobacco: Never Smokeless Tobacco: Never Comments:dad and mom [...] on filedocumented in this encounter Care Teams Excel Analyst Relationship Specialty Start Date End Date Jaja Castañeda MD PCP - General Pediatrics 03/03/12 06/10/18 [facility], Pcp PCP - General Internal Medicine 06/11/18 07/21/18 Mando Reyes MD PCP - General Internal Medicine 07/22/18 KraRosy Dye DO PCP - General Internal Medicine 06/17/19 03/25/21 Rock Yancey MD PCP - General Internal Medicine 03/26/21 02/04/22 Amparo Amaya MD [address] [place] [address] PCP - General Internal Medicine 02/05/22 documented as of this encounter
--- OUTSIDE RECORDS SUMMARY | 2025-02-12 01:24 | XMS_ITS | Encounter Summary ---
Author Organization [facility] Address [address] [place] [address] Care Team Providers Care Estimator Printing Name Role Phone Jaja Castañeda MD Primary Care Provider Unavailab [facility], Pcp Primary Care Provider UnavailMando Celestin MD Primary Care Provider Un available Rosy Ríos DO Primary Care Pro vider Unavailable Rock Yancey MD Primary Care Provider Amparo Rogers MD Primary Care Provider [phone] Encounter Details Date Type Department Care Team Description 07/14/2014 Software Designer Report Medical Records [address] [place] [address] Yoan Bhatt MD Social History Tobacco Use Types Packs/Day Years [...] on filedocumented in this encounter Care Teams Estimator Printing Relationship Specialty Start Date End Date Jaja Castañeda MD PCP - General Pediatrics 03/03/12 06/10/18 [facility], Pcp PCP - General Internal Medicine 06/11/18 07/21/18 Mando Reyes MD PCP - General Internal Medicine 07/22/18 Rosy Ríos DO PCP - General Internal Medicine 06/17/19 03/25/21 Rock Yancey MD PCP - General Internal Medicine 03/26/21 02/04/22 Amparo Amaya MD [address] [place] [address] PCP - General Internal Medicine 02/05/22 documented as of this encounter
--- OUTSIDE RECORDS SUMMARY | 2025-02-12 01:24 | XMS_ITS | Encounter Summary ---
Author Organization [facility] Address [address] [place] [address] Care Team Providers Care Certified Nurse Name Role Phone Amparo Amaya MD Primary Care Provider [phone] Encounter Details Date Type Department Care Team Description 10/27/2023 Collaborative Care Management Adult Medicine B - [address] [address] Amparo Amaya MD [address] [place] [address] Social History Tobacco Use Types Packs/Day Years [...] on filedocumented in this encounter Care Teams Certified Nurse Relationship Specialty Start Date End Date Amparo Amaya MD [address] [place] [address] PCP - General Internal Medicine 02/05/22 documented as of this encounter
--- OUTSIDE RECORDS SUMMARY | 2025-02-12 01:24 | XMS_ITS | Encounter Summary ---
Author Organization [facility] Address [address] [place] [address] Care Team Providers Care Industrial Engineering Intern Name Role Phone Amparo Amaya MD Primary Care Provider [phone] Encounter Details Date Type Department Care Team Description 05/06/2023 Pt. Non Urgent Medical Question Adult Medicine [address] [address] Galdino Lanier, PAPatricaC [address] [place] [address] Social History Tobacco Use Types Packs/Day Years Used Date Smoking Tobacco: Every Day Cigarettes Vapor Smokeless Tobacco: Never Comments:dad and mom smokes [...] on filedocumented in this encounter Care Teams Industrial Engineering Intern Relationship Specialty Start Date End Date Amparo Amaya MD [address] [place] [address] PCP - General Internal Medicine 02/05/22 documented as of this encounter
--- OUTSIDE RECORDS SUMMARY | 2025-02-12 01:24 | XMS_ITS | Encounter Summary ---
Author Organization [facility] Address [address] [place] [address] Care Team Providers Care Staffing Specialist Name Role Phone Jaja Castañeda MD Primary Care Provider Unavailab [facility], Pcp Primary Care Provider UnavailMando Celestin MD Primary Care Provider Un available Rosy Ríos DO Primary Care Pro vider Unavailable Rock Yancey MD Primary Care Provider Amparo Rogers MD Primary Care Provider [phone] Encounter Details Date Type Department Care Team Description 07/31/2014 MULTI CRAFT MAINTENANCE TECHNICIAN/[employer] Report Medical Records [address] [place] [id number] Abstract, Provider Social History Tobacco Use Types [...] on filedocumented in this encounter Care Teams Staffing Specialist Relationship Specialty Start Date End Date Jaja Castañeda MD PCP - General Pediatrics 03/03/12 06/10/18 [facility], Pcp PCP - General Internal Medicine 06/11/18 07/21/18 Mando Reyes MD PCP - General Internal Medicine 07/22/18 Rosy Ríos, DO PCP - General Internal Medicine 06/17/19 03/25/21 Rock Yancey MD PCP - General Internal Medicine 03/26/21 02/04/22 Amparo Amaya MD [address] [place] [address] PCP - General Internal Medicine 02/05/22 documented as of this encounter
--- OUTSIDE RECORDS SUMMARY | 2025-02-12 01:24 | XMS_ITS | Encounter Summary ---
Author Organization [facility] Address [address] [place] [address] Care Team Providers Care Curing Press Operator Name Role Phone Jaja Castañeda MD Primary Care Provider Unavailab [facility], Pcp Primary Care Provider UnavailMando Celestin MD Primary Care Provider Un available Rosy Ríos DO Primary Care Pro vider Unavailable Rock Yancey MD Primary Care Provider Amparo Rogers MD Primary Care Provider [phone] Encounter Details Date Type Department Care Team Description 12/23/2016 Furniture Builder Report Medical Records [address] [place] [id number] [place] [address] Social History Tobacco Use Types Packs/Day Years [...] on filedocumented in this encounter Care Teams Curing Press Operator Relationship Specialty Start Date End Date Jaja Castañeda MD PCP - General Pediatrics 03/03/12 06/10/18 [facility], Pcp PCP - General Internal Medicine 06/11/18 07/21/18 Mando Reyes MD PCP - General Internal Medicine 07/22/18 Rosy Ríos DO PCP - General Internal Medicine 06/17/19 03/25/21 Rock Yancey MD PCP - General Internal Medicine 03/26/21 02/04/22 Amparo Amaya MD [address] [place] [address] PCP - General Internal Medicine 02/05/22 documented as of this encounter
--- OUTSIDE RECORDS SUMMARY | 2025-02-12 01:24 | XMS_ITS | Encounter Summary ---
Author Organization [facility] Address [address] [place] [address] Care Team Providers Care Treating Plant Supervisor Name Role Phone Jaja Castañeda MD Primary Care Provider Unavailab [facility], Pcp Primary Care Provider UnavailMando Celestin MD Primary Care Provider Un available Rosy Ríos DO Primary Care Pro vider Unavailable Rock Yancey MD Primary Care Provider Amparo Rogers MD Primary Care Provider [phone] Encounter Details Date Type Department Care Team Description 03/22/2014 [facility] Medical Records [address] [place] [address] Abstract, Provider Social History Tobacco Use Types [...] on filedocumented in this encounter Care Teams Treating Plant Supervisor Relationship Specialty Start Date End Date Jaja Castañeda MD PCP - General Pediatrics 03/03/12 06/10/18 [facility], Pcp PCP - General Internal Medicine 06/11/18 07/21/18 Mando Reyes MD PCP - General Internal Medicine 07/22/18 Rosy Ríos DO PCP - General Internal Medicine 06/17/19 03/25/21 Rock Yancey MD PCP - General Internal Medicine 03/26/21 02/04/22 Amparo Amaya MD [address] [place] [address] PCP - General Internal Medicine 02/05/22 documented as of this encounter
--- OUTSIDE RECORDS SUMMARY | 2025-02-12 01:24 | XMS_ITS | Encounter Summary ---
Author Organization [employer] [facility] Address [address] [place] [address] Care Team Providers Care Ballistics Tester Name Role Phone Amparo Amaya MD Primary Care Provider [phone] Encounter Details Date Type Department Care Team Description 07/29/2023 Orders Only Medical Records [address] [place] [address] Jas Richardson NP Social History Tobacco Use Types Packs/Day Years [...] on file documented as of this encounter Procedures Procedure Name Priority Date/Time Associated Diagnosis Comments OUTSIDE LAB Routine 05/12/2023 documented in this encounter Results * OUTSIDE LAB (05/12/2023) Jas Richardson NP LAB documented in this encounter Visit Diagnoses Not on filedocumented in this encounter Care Teams Ballistics Tester Relationship Specialty Start Date End Date Amparo Amaya MD [address] [place] [address] PCP - General Internal Medicine 02/05/22 documented as of this encounter
--- OUTSIDE RECORDS SUMMARY | 2025-02-12 01:24 | XMS_ITS | Encounter Summary ---
Author Organization [facility] Address [address] [place] [address] Care Team Providers Care Senior Network Engineer Name Role Phone Rock Yancey MD Primary Care Provider Amparo Rogers MD Primary Care Provider [phone] Reason for Visit * Reason Onset Date Comments er follow up 10/23/2021 Encounter Details Date Type Department Care Team Description 10/23/[facility] [address] [place] [address] Kerri Mcleod DO er follow up Social History Tobacco Use Types Packs/Day Years [...] suspected to have Coronavirus/COVID-19? No / Unsure 10/23/2021 10:28 AM EDT documented as of this encounter Miscellaneous Notes * Telephone Encounter - Capri Lanier M.A. - 10/23/2021 11:28 AM EDT Spoke with medical records from [facility]. Looking for ER notes from 10/19/2021 for Pelvic Pain. Faxed Hospital follow up to [phone],and also to [phone]. documented in this encounter Plan of Treatment Not on file documented as of this encounter Visit Diagnoses Not on filedocumented in this encounter Care Teams Senior Network Engineer Relationship Specialty Start Date End Date Rock Yancey MD PCP - General Internal Medicine 03/26/21 02/04/22 Amparo Amaya MD [address] [place] [address] PCP - General Internal Medicine 02/05/22 documented as of this encounter
--- OUTSIDE RECORDS SUMMARY | 2025-02-12 01:24 | XMS_ITS | Clinical Summary ---
Author Organization [facility] Address [address] [place] [address] Phone Care Team Providers Care Optometry Professor Name Role Phone Jaja Castañeda MD Primary Care Provider [phone] Allergies Active Allergy Reactions Criticality Noted Date Comments Sulfamethoxazole-Trimethoprim 2021 Diphenhydramine Hcl 10/19/2021 Medications HYDROcodone-toby taminophen (NORCO) 5-325 mg per tablet Take 1 tablet by mouth every 6 (six) hours as needed for pain (specific location in comments). Partial fill ok 2 tablet 10/19/2021 Active Immunizations Immunization Administration Dates Next Due Hepatitis B Adult 09/18/2000,04/21/2000,10/31/19 00 MMR 02/11/2005,12/23/2000 Tdap 01/29/2012 Varicella 05/22/2009,10/09/2000 Social History Tobacco Use Types Packs/Day Years Used Date Smoking Tobacco: Never Assessed Education Answer Date Recorded Are you interested in more education? Not on christopher e 09/26/2022 Are you concerned about learning? Not on file 09/26/2022 No 09/26/2022 No 09/26/2022 Digital Access Answer Date Recorded No 10/27/2022 No 10/27/2022 No 10/27/2022 Reliable internet access at home? Not on file 10/27/2022 Device with a working camera? Not on file Comments Unknown Sex and Gender Information Value Date Recorded Sex Assigned at Not on file Legal Sex Female 9:46 AM EDT Gender Identity Not on file Sexual Orientation Not on file Last Filed Vital Signs Vital Sign Reading Time Taken Comments Blood Pressure 121/80 10/19/2021 11:58 AM EDT Pulse 88 10/19/2021 11:58 AM EDT Temperature 36.3 C (97.3 F) 10/19/2021 11:58 AM EDT Respiratory Rate 18 10/19/2021 11:58 AM EDT Oxygen Saturation 97% 10/19/2021 11:58 AM EDT Inhaled Oxygen Concentration - - Weight - - Height - - Body Mass Index - - Plan of Treatment Health Maintenance Due Date Last Done Comments DEPRESSION SCREENING 2011 SMOKING Hx and SMOKELESS TOBACCO SCREENING 08/26/2012 HEPATITIS C SCREENING 08/26/2017 HIV ONE-TIME SCREENING (18-65 YEARS) 08/26/2017 PAP SMEAR 08/26/2020 COVID-19 VACCINE ( season) 2024 11/18/2021, 07/15/2021, 05/28/2021 Adult Td,Tdap Booster 09/25/2031 09/24/2021, 012 PNEUMOCOCCAL VACCINES (0-49 years) Aged Out 09/18/2000, 07/03/2000, 04/21/2000 No longer eligible based on patient's age to complete this topic HIB VACCINES Completed 12/23/2000, 11/30, 01/14/2000, Additional history exists HPV VACCINES Completed 03/22/2015, 03/01, 12/15/2012 MENINGOCOCCAL VACCINES (ACWY) Completed 10/01/2016, 01/29/2012 HEPATITIS A VACCINES Aged Out No long er eligible based on patient's age to complete this topic MENINGOCOCCAL VACCINES (B) Aged Out N o longer eligible based on patient's age to complete this topic Medical Devices Not on file Insurance [facility] [place] Member Subscriber Plan / Payer (Ef fective 2016-Present) Name:Miladys Archer Relation to Subscriber:Self Name:AlMiladys diehl Payer ID:Not on file Type:Medicaid Address: [address] Member Subscriber Plan / Payer (Ef fective 2016-Present) Name:Miladys Archer Relation to Subscriber:Self Name:Miladys Archer Payer ID:Not on file Type:Medicaid [address] [facility] Member Subscriber Plan / Payer (Ef fective 2016-Present) Name:Miladys Archer Relation to Subscriber:Self Name:Miladys Archer Payer ID:Not on file Type:Medicaid Address: [address] [facility] Member Subscriber Plan / Payer (Ef fective 2016-Present) Name:Miladys Archer Relation to Subscriber:Self Name:Miladys Archer Payer ID:Not on file Type:Medicaid Address: [address] [facility] [employer] [facility] Member Subscriber Plan / Payer (Ef fective 2016-Present) Name:Miladys Archer Relation to Subscriber:Self Name:Miladys Archer Payer ID:Not on file Type:Medicaid Address: [address] [employer] [place] [facility] Member Subscriber Plan / Payer (Ef fective 2016-Present) Name:Miladys Archer Relation to Subscriber:Self Name:Miladys Archer Payer ID:Not on file Type:Medicaid Address: [address] [employer] [facility] [employer] [facility] [place] [facility] [employer] [facility] Care Teams Optometry Professor Relationship Specialty Start Date End Date Jaja Castañeda MD [address] [place] [address] PCP - General Pediatrics 03/04/16 Additional Source Comments The information contained in this document represents components of the legal health record. It is not the complete legal health record.[facility]
--- OUTSIDE RECORDS SUMMARY | 2025-02-12 01:24 | XMS_ITS | Encounter Summary ---
Author Organization [facility] Address [address] [place] [address] Care Team Providers Care Night Warehouse Selector Name Role Phone Amparo Amaya MD Primary Care Provider [phone] Reason for Visit * Reason Onset Date Comments Test 02/17/2022 Encounter Details Date Type Department Care Team Description 02/17/2022 Telephone OBGYN - [place] [address] [place] [address] Grayson Molina, Test Social History Tobacco Use Types Packs/Day Years [...] suspected to have Coronavirus/COVID-19? No / Unsure 02/06/2022 12:43 PM EDT documented as of this encounter Miscellaneous Notes * Telephone Encounter - Jane Medina R.N. - 02/17/2022 11:30 AM EDT Return call to patient. VM left. * Telephone Encounter - Lindy Sandoval - 02/17/2022 9:29 AM EDT Chief Complaint/problem: Patient states shes taken two tests one was negative and the other was a faint positive. Patients lmp was 01/04 which was normal, but patient states she spotted for 3days this month starting 01/30 which is very unnormal as she didn't even need a pad she doesn't believe that was her actual menses. Reqeusting call back How long has the patient had this problem? Pt???s CAPTAIN WAITER/WAITRESS provider: Grayson Guthrie, DO Last menstrual period (LMP) or EDC (due date): 01/04 documented in this encounter Plan of Treatment Not on file documented as of this encounter Visit Diagnoses Not on filedocumented in this encounter Care Teams Night Warehouse Selector Relationship Specialty Start Date End Date Amparo Amaya MD [address] [place] [address] PCP - General Internal Medicine 02/05/22 documented as of this encounter
--- OUTSIDE RECORDS SUMMARY | 2025-02-12 01:24 | XMS_ITS | Encounter Summary ---
Author Organization [facility] Address [address] [place] [address] Care Team Providers Care Guest Request Runner Name Role Phone Jaja Castañeda MD Primary Care Provider Unavailab Lea, Pcp Primary Care Provider Unavaildeyanira e Mando Reyes MD Primary Care Provider Un available Rosy Ríos DO Primary Care Pro vider Unavailable Rock Yancey MD Primary Care Provider Amparo Rogers MD Primary Care Provider [phone] Encounter Details Date Type Department Care Team Description 07/05/2015 Tube Room Cashier Report Medical Records [address] [place] [address] Edie Jones Social History Tobacco Use Types [...] on filedocumented in this encounter Care Teams Guest Request Runner Relationship Specialty Start Date End Date Jaja Castañeda MD PCP - General Pediatrics 03/03/12 06/10/18 [facility], Pcp PCP - General Internal Medicine 06/11/18 07/21/18 Mando Reyes MD PCP - General Internal Medicine 07/22/18 Rosy Ríos DO PCP - General Internal Medicine 06/17/19 03/25/21 Rock Yancey MD PCP - General Internal Medicine 03/26/21 02/04/22 Amparo Amaya MD [address] [place] [address] PCP - General Internal Medicine 02/05/22 documented as of this encounter
--- OUTSIDE RECORDS SUMMARY | 2025-02-12 01:24 | XMS_ITS | Encounter Summary ---
Author Organization [facility] Address [address] [place] [address] Care Team Providers Care Application Software Developer Name Role Phone Grace Vivas MD Primary Care Provider Jaja Angela MD Primary Care Provider [facility] Pcp Primary Care Provider Mando Kidd MD Primary Care Provider Un available Rosy Ríos DO Primary Care Pro vider Unavailable Rock Yancey MD Primary Care Provider Amparo Rogers MD Primary Care Provider [phone] Encounter Details Date Type Department Care Team Description 07/30/2011 Orders Only Pediatrics - [address] [address] Grace Vivas MD Social History Tobacco Use Types Packs/Day [...] on filedocumented in this encounter Care Teams Application Software Developer Relationship Specialty Start Date End Date Grace Vivas MD PCP - General Pediatrics 06/24/11 03/02/12 Jaja Castañeda MD PCP - General Pediatrics 03/03/12 06/10/18 [facility], Pcp PCP - General Internal Medicine 06/11/18 07/21/18 Mando Reyes MD PCP - General Internal Medicine 07/22/18 Rosy Ríos DO PCP - General Internal Medicine 06/17/19 03/25/21 Rock Yancey MD PCP - General Internal Medicine 03/26/21 02/04/22 Amparo Amaya MD [address] [place] [address] PCP - General Internal Medicine 02/05/22 documented as of this encounter
--- OUTSIDE RECORDS SUMMARY | 2025-02-12 01:24 | XMS_ITS | Encounter Summary ---
Author Organization [facility] Address [address] [place] [address] Care Team Providers Care Educational Therapy Teacher Name Role Phone Amparo Amaya MD Primary Care Provider Encounter Details Date Type Department Care Team Description 05/12/2023 Walk In Clinic Visit Medical Records [address] [place] [address] Jas Richardson, FEDE Social History Tobacco Use Types Packs/Day Years [...] on filedocumented in this encounter Care Teams Educational Therapy Teacher Relationship Specialty Start Date End Date Amparo Amaya MD [address] [place] [address] PCP - General Internal Medicine 02/05/22 documented as of this encounter
--- OUTSIDE RECORDS SUMMARY | 2025-02-12 01:24 | XMS_ITS | Encounter Summary ---
Author Organization [facility] Address [address] [place] [address] Care Team Providers Care Commercial Litigation Attorney Name Role Phone Jaja Castañeda MD Primary Care Provider Unavailab Lea, Pcp Primary Care Provider Unavaildeyanira e Mando Reyes MD Primary Care Provider Un available Rosy Ríos DO Primary Care Pro vider Unavailable Rock Yancey MD Primary Care Provider Amparo Rogers MD Primary Care Provider [phone] Encounter Details Date Type Department Care Team Description 09/01/2014 Construction Carpenter Report Medical Records [address] [place] [address] Edie Jones Social History Tobacco Use Types [...] on filedocumented in this encounter Care Teams Commercial Litigation Attorney Relationship Specialty Start Date End Date Jaja Castañeda MD PCP - General Pediatrics 03/03/12 06/10/18 [facility], Pcp PCP - General Internal Medicine 06/11/18 07/21/18 Mando Reyes MD PCP - General Internal Medicine 07/22/18 Rosy Ríos DO PCP - General Internal Medicine 06/17/19 03/25/21 Rock Yancey MD PCP - General Internal Medicine 03/26/21 02/04/22 Amparo Amaya MD [address] [place] [address] PCP - General Internal Medicine 02/05/22 documented as of this encounter
--- OUTSIDE RECORDS SUMMARY | 2025-02-12 01:24 | XMS_ITS | Encounter Summary ---
Author Organization [facility] Address [address] [place] [address] Care Team Providers Care Basket Sorter Name Role Phone Jaja Castañeda MD Primary Care Provider Unavailab Lea, Pcp Primary Care Provider UnavailMando Celestin MD Primary Care Provider Un available Rosy Ríos DO Primary Care Pro vider Unavailable Rock Yancey MD Primary Care Provider Amparo Rogers MD Primary Care Provider [phone] Encounter Details Date Type Department Care Team Description 03/26/2016 Agricultural Inspector Report Medical Records [address] [place] [address] Shauna Sampson MD Social History Tobacco Use Types Packs/Day [...] on filedocumented in this encounter Care Teams Basket Sorter Relationship Specialty Start Date End Date Jaja Castañeda MD PCP - General Pediatrics 03/03/12 06/10/18 [facility], Pcp PCP - General Internal Medicine 06/11/18 07/21/18 Mando Reyes MD PCP - General Internal Medicine 07/22/18 Rosy Ríos DO PCP - General Internal Medicine 06/17/19 03/25/21 Rock Yancey MD PCP - General Internal Medicine 03/26/21 02/04/22 Amparo Amaya MD [address] [place] [address] PCP - General Internal Medicine 02/05/22 documented as of this encounter
--- OUTSIDE RECORDS SUMMARY | 2025-02-12 01:24 | XMS_ITS | Encounter Summary ---
Author Organization [facility] Address [address] [place] [address] Care Team Providers Care Run Lead Name Role Phone Amparo Amaya MD Primary Care Provider [phone] Encounter Details Date Type Department Care Team Description 09/22/2023 Refill Adult Medicine [address] [address] Amparo Amaya MD [address] [place] [id number] Social History Tobacco Use Types Packs/Day Years [...] on filedocumented in this encounter Care Teams Run Lead Relationship Specialty Start Date End Date Amparo Amaya MD [address] [place] [address] PCP - General Internal Medicine 02/05/22 documented as of this encounter
--- OUTSIDE RECORDS SUMMARY | 2025-02-12 01:24 | XMS_ITS | Encounter Summary ---
Author Organization [facility] Address [address] [place] [address] Care Team Providers Care Orthopaedic Physician Assistant Name Role Phone Amparo Amaya MD Primary Care Provider [phone] Encounter Details Date Type Department Care Team Description 11/14/2023 Pt. Non Urgent Medical Question Adult Medicine [address] [address] Amparo Amaya MD [address] [place] [address] Social History Tobacco Use Types Packs/Day Years [...] as of this encounter Progress Notes * Daniella Beltran R.N. - 11/16/2023 8:00 AM EDT Left vm for pt to return my call. Sent my chart message documented in this encounter Miscellaneous Notes * Telephone Encounter - Taco Pisano M.A. - 11/16/2023 6:58 AM EDTFrom: Kenny Archer To: Naomy Jose Luis Sent: 11/14/2023 7:28 PM EDT Subject: appt Hi I was just wondering if it was possible for you to schedule me an appointment? Blanca called twice and both times I was on hold for over 30 minutes and then the call dropped but basically I fainted twice in the last week and actually had a ambulance called but i ended up not going to the er i have bad panic attacks there. Blanca been sick the past c ouple days with a cold i think but im not sure whyit happened so i really want to do my blood work to make sure everythings good, my vitals the day ipassed out were good when the coil wrapper checked but they recommended i saw my pcp also. Thankyou ! documented in this encounter Plan of Treatment Not on file documented as of this encounter Visit Diagnoses Not on filedocumented in this encounter Care Teams Orthopaedic Physician Assistant Relationship Specialty Start Date End Date Amparo Amaya MD [address] [place] [address] PCP - General Internal Medicine 02/05/22 documented as of this encounter
--- OUTSIDE RECORDS SUMMARY | 2025-02-12 01:24 | XMS_ITS | Encounter Summary ---
Author Organization [facility] Address [address] [place] [address] Care Team Providers Care Machine Stripper Name Role Phone Jaja Castañeda MD Primary Care Provider [facility], Pcp Primary Care Provider Mando Kidd MD Primary Care Provider Un available Rosy Ríos DO Primary Care Pro vider Unavailable Rock Yancey MD Primary Care Provider Amparo Rogers MD Primary Care Provider [phone] Reason for Visit * Reason Onset Date Comments refill request 11/27/2014 Encounter Details Date Type Department Care Team Description 11/27/2014 Refill Pediatrics - [address] [address] Jaja Castañeda MD refill request Social History Tobacco Use Types Packs/Day Years [...] encounter Miscellaneous Notes * Telephone Encounter - Dez Shabazzgogo - 11/27/2014 8:43 AM EDT When was patients last PE/WCC? 03/17/14 When is patients next PE/WCC scheduled? waitlist Jaja Castañeda RX REQUEST WHEN MED IS ON THE LIST: All of the medications requested were on the CURRENT MEDS list Did you check the Pharmacy information above?: YES Indicate how soon the patient needs the script: OK FOR NEXT DAY Patient would like script to be: E-PRESCRIBED/FAXED TO PHARMACY Is the doctor here today?: YES Can the message wait until the doctor returns?: YES Has the patient been told that the prescription will not be filled until the end of the day? NO Jaja Castañeda Payor: [employer] FFS / Plan: FFS HMO $0 [place] [id number] / Product Type: MEDICAID RISK documented in this encounter Plan of Treatment Not on file documented as of this encounter Visit Diagnoses Not on filedocumented in this encounter Care Teams Machine Stripper Relationship Specialty Start Date End Date Jaja Castañeda MD PCP - General Pediatrics 03/03/12 06/10/18 [facility], Pcp PCP - General Internal Medicine 06/11/18 07/21/18 Mando Reyes MD PCP - General Internal Medicine 07/22/18 Rosy Ríos DO PCP - General Internal Medicine 06/17/19 03/25/21 Rock Yancey MD PCP - General Internal Medicine 03/26/21 02/04/22 Amparo Amaya MD [address] [place] [address] PCP - General Internal Medicine 02/05/22 documented as of this encounter
--- OUTSIDE RECORDS SUMMARY | 2025-02-12 01:24 | XMS_ITS | Encounter Summary ---
Author Organization [facility] Address [address] [place] [address] Care Team Providers Care Cytotechnologist Name Role Phone Grace Vivas MD Primary Care Provider Jaja Angela MD Primary Care Provider [facility] Pcp Primary Care Provider Mando Kidd MD Primary Care Provider Un available Rosy Ríos DO Primary Care Pro vider Unavailable Rock Yancey MD Primary Care Provider Amparo Rogers MD Primary Care Provider [phone] Encounter Details Date Type Department Care Team Description 08/07/2011 Release of Information Medical Records [address] [place] [address] Abstract, Provider Social History Tobacco Use Types [...] on filedocumented in this encounter Care Teams Cytotechnologist Relationship Specialty Start Date End Date Grace Vivas MD PCP - General Pediatrics 06/24/11 03/02/12 Jaja Castañeda MD PCP - General Pediatrics 03/03/12 06/10/18 [facility], Pcp PCP - General Internal Medicine 06/11/18 07/21/18 Mando Reyes MD PCP - General Internal Medicine 07/22/18 Rosy Ríos DO PCP - General Internal Medicine 06/17/19 03/25/21 Rock Yancey MD PCP - General Internal Medicine 03/26/21 02/04/22 Amparo Amaya MD [address] [place] [address] PCP - General Internal Medicine 02/05/22 documented as of this encounter
--- OUTSIDE RECORDS SUMMARY | 2025-02-12 01:24 | XMS_ITS | Clinical Summary ---
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 Encounter for supervision of normal first in first trimester LIPID PANEL Routine 12/11/2023 HM GONORRHEA/CHLAMYDIA SCRREENING Routine 09/09/2023 HM DEPRESSION SCREENING Routine 2023 PAP SMEAR Routine 10/01/2021 from Last 3 Months or Most Recently Relevant to Health Maintenance Results * Horizon 14 (12/07/2024 1:44 PM EDT) Blood Venous blood specimen / Unknown us Pam Fuller [facility] BLOOD ORDERABLES Final Res ult * Panorama test (12/06/2024 11:47 AM EDT) Blood Venous blood specimen / Unknown us Pam Fuller [facility] LAB BLOOD ORDERABLES Final Res ult * Hepatitis C antibody (11/30/2024 11:11 AM EDT) Hepatitis C Antibody Negative Negative LAB CHEMISTRY METHOD 11/30/2024 5:13 PM EDT [facility] Blood Venous blood specimen / Unknown Venipuncture / Unknown 11/30/2024 11:11 AM EDT 11/30/2024 11:11 AM EDT us Pam Fuller [facility] LAB BLOOD ORDERABLES Final Res ult [facility] [address] [place] [address], [place] [phone] * HIV 1,2 antibody, p24 antigen with reflex to differentiation (11/30/2024 11:11 AM EDT) HIV Combo AB/AG Negative Negative LAB CHEMISTRY METHOD 11/30/2024 5:14 PM EDT [facility] Blood Venous blood specimen / Unknown Venipuncture / Unknown 11/30/2024 11:11 AM EDT 11/30/2024 11:11 AM EDT [facility] - 11/30/2024 5:14 PM EDT This assay is a 4th generation assay allowing for earlier detection of HIV infection by detecting the presence of the HIV-1 p24 antigen as well as the traditional antibodies to HIV type 1 (including group O) and type 2. Use of a 4th generation assay is the current CDC recommendation for HIV screening. us Pam Fuller [facility] LAB BLOOD ORDERABLES Final Res ult Performing Organization Address City/[facility]/ZIP Co de Phone Number [facility] [address] [place] [address], [place] [phone] * Hepatitis B surface antigen with reflex to confirmation (11/30/2024 11:11 AM EDT) Pathologist [facility] Hepatitis B Surface Ag Negative Negative LAB CHEMISTRY METHOD 11/30/2024 4:45 PM EDT [facility] Blood Venous blood specimen / Unknown Venipuncture / Unknown 11/30/2024 11:11 AM EDT 11/30/2024 11:11 AM EDT [facility] - 11/30/2024 4:45 PM EDT Over the counter supplements containing high doses of biotin may interfere with this assay. If interference is suspected, patients shoud be retested after refraining from biotin supplements for 72 hours. us Pam Fuller [facility] LAB BLOOD ORDERABLES Final Res ult Performing Organization Address City/[facility]/ZIP Co de Phone Number [facility] [address] [place] [address], [place] [phone] * Treponema pallidum antibody with reflex to RPR and particle agglutination (11/30/2024 11:11 AM EDT) [facility] T. Pallidum Antibodies Negative Negative LAB CHEMISTRY METHOD 11/30/2024 6:21 PM EDT [facility] Blood Venous blood specimen / Unknown Venipuncture / Unknown 11/30/2024 11:11 AM EDT 11/30/2024 11:11 AM EDT us Pam Fuller [facility] LAB BLOOD ORDERABLES Final Res ult Performing Organization Address [facility]/ZIP Co de Phone Number [facility] [address] [place] [address], [place] [phone] * Venipuncture charge (11/30/2024 11:11 AM EDT) [facility] Extra Tube Hold for add-ons. 11/30/2024 1:01 PM EDT [facility] Comment:Auto resulted. Blood Venous blood specimen / Unknown Venipuncture / Unknown 11/30/2024 11:11 AM EDT 11/30/2024 11:11 AM EDT us Orozco Jessica Marines [facility] BLOOD ORDERABLES Final Res ult [facility] [place], [place] * (ABNORMAL) CBC auto differential (11/30/2024 11:11 AM EDT) [facility] WBC 7.4 4.8 - 10.8 K/[facility] LAB HEMETOLOGY METHOD 11/30/2024 3:18 PM EDT [facility] RBC 4.60 3.80 - 4.80 M/mcL LAB HEMETOLOGY METHOD 11/30/2024 3:18 PM EDT [facility] Hemoglobin 13.7 11.5 - 16.0 g/dL LAB HEMETOLOGY METHOD 11/30/2024 3:18 PM EDT [facility] Hematocrit 42.6 35.0 - 47.0 % LAB HEMETOLOGY METHOD 11/30/2024 3:18 PM EDT [facility] MCV 92.2 79.0 - 98.0 FL LAB HEMETOLOGY METHOD 11/30/2024 3:18 PM EDT [facility] MCH 29.7 27.0 - 32.0 pcg LAB HEMETOLOGY METHOD 11/30/2024 3:18 PM EDT [facility] MCHC 32.2 32.0 - 37.0 g/dL LAB HEMETOLOGY [facility] RDW 12.7 11.0 - 15.0 % LAB HEMETOLOGY METHOD 11/30/2024 3:18 PM EDT [facility] Platelets 173 130 - 400 K/mcL LAB HEMETOLOGY METHOD [facility]/30[facility]2024 [facility] MPV 12.5(H) 7.0 - 11.0 FL LAB HEMETOLOGY METHOD 11/30/2024 3:18 PM [facility] NRBC 0.0 <1.0 % LAB HEMETOLOGY METHOD 11/30/2024 3:18 PM EDT [facility] NRBC Absolute 0.00 <0.10 K/mcL LAB HEMETOLOGY METHOD 11/30/2024 3:[facility] Neutrophils Relative 75.9 % LAB HEMETOLOGY METHOD 11/30/2024 3:18 [facility] Lymphocytes Relative 19.0 % LAB HEMETOLOGY METHOD 11/30/2024 3:18 [facility] Monocytes Relative 3.9 % LAB HEMETOLOGY METHOD 11/30/2024 3:18 PM EDT [facility] Eosinophils Relative 0.5 % LAB HEMETOLOGY METHOD 11/30/2024 3:18 PM EDT [facility] Basophils Relative 0.3 % LAB HEMETOLOGY METHOD 11/30/2024 3:18 PM EDT [facility] Immature Granulocytes Relative 0.4 % LAB HEMETOLOGY METHOD 11/30/2024 3:18 PM EDT [facility] Neutrophils Absolute 5.65 1.50 - 7.00 K/mcL LAB HEMETOLOGY METHOD 11/30/2024 3:18 PM EDT [facility] Lymphocytes Absolute 1.41 1.00 - 5.00 K/mcL LAB HEMETOLOGY METHOD 11/30/2024 3:18 PM EDT [facility] Monocytes Absolute 0.29 0.20 - 1.00 K/mcL LAB HEMETOLOGY METHOD 11/30/2024 3:18 PM EDT [facility] Eosinophils Absolute 0.04 0.00 - 0.50 K/mcL LAB HEMETOLOGY METHOD 11/30/2024 3:18 PM EDT [facility] Basophils Absolute 0.02 0.00 - 0.20 K/mcL LAB HEMETOLOGY METHOD 11/30/2024 3:18 PM EDT [facility] Immature Granulocytes Absolute 0.03 0.00 - 0.03 K/mcL LAB HEMETOLOGY METHOD 11/30/2024 3:18 PM EDT [facility] Blood Venous blood specimen / Unknown Venipuncture / Unknown 11/30/2024 11:11 AM EDT 11/30/2024 11:11 AM EDT us Pam Fuller CNM LAB BLOOD ORDERABLES Final Res ult [facility] [address] [place] [address], [place] [phone] * Rubella antibody IgG (11/30/2024 11:11 AM EDT) Rubella IgG Quant 24.9 >=10.0 I Unit/mL LAB CHEMISTRY METHOD 11/30/2024 4:44 PM EDT [facility] Rubella IgG Antibody Interp Positive Positive LAB CHEMISTRY METHOD 11/30/2024 4:44 PM EDT [facility] Blood Venous blood specimen / Unknown Venipuncture / Unknown 11/30/2024 11:11 AM EDT 11/30/2024 11:11 AM EDT us Pam Fuller [facility] BLOOD ORDERABLES Final Res ult Performing Organization Address [facility]/ZIP Co de Phone Number [facility] [address] [place] [address], * Type and screen (11/30/2024 11:11 AM EDT) Pathologist [facility] ABO Group B 12/01/2024 8:32 AM EDT [facility] Rh Type Positive 12/01/2024 8:32 AM EDT [facility] Antibody Screen Negative 12/01/2024 8:32 AM EDT [facility] Blood Venous blood specimen / Unknown Venipuncture / Unknown 11/30/2024 11:11 AM EDT 11/30/2024 11:11 AM EDT us Pam BENNETT LAB BLOOD BANK TEST ORDERABLES Final Result [facility] [address] [place] [address], [place] [phone] * (ABNORMAL) Varicella zoster antibody IgG (11/30/2024 11:11 AM EDT) Pathologist [facility] Varicella IgG Negative( A) Positive LAB CHEMISTRY METHOD 12/01/2024 11:18 AM EDT [facility] Varicella Zoster IgG 0.69(L) >=1.00 S/CO LAB CHEMISTRY METHOD 12/01/2024 11:18 AM EDT [facility] Blood Venous blood specimen / Unknown Venipuncture / Unknown 11/30/2024 11:11 AM EDT 11/30/2024 11:11 AM EDT Juan [facility] - 12/01/2024 11:18 AM EDT Interpretation >= 1.00 S/CO is considered to be consistent with Immunity Pam BENNETT LAB BLOOD ORDERABLES Final Res ult [facility] [address] [place] [address], * HCG, quantitative (11/30/2024 11:11 AM EDT) hCG Quant 74,813 mIU/mL LAB CHEMISTRY METHOD 11/30/2024 4:41 PM EDT [facility] Comment:Results verified by repeat testing Blood Venous blood specimen / Unknown Venipuncture / Unknown 11/30/2024 11:11 AM EDT 11/30/2024 11:11 AM EDT [facility] - 11/30/2024 4:41 PM EDT Quantitative HCG Reference Ranges Time after Conception MIU/ML 0.2-1 Week 5-50 1-2 Weeks 50-500 2-3 Weeks 100-5,000 3-4 Weeks 500-10,000 4-5 Weeks 1,000-50,000 5-6 Weeks 10,000-100,000 6-8 Weeks 15,000-200,000 2-3 Months 10,000-100,000 2nd Trimester 1,000-94,000 3rd Trimester 2,500-90,000 Non- Females 1-3 Jocelynn Mccarthy CNM LAB BLOOD ORDERABLES Final Result [facility] [address] [place] [address], * Lipid panel (12/11/2023) LDL/HDL Ratio 2 0 - 4 Triglycerides 46 0 - 150 mg/dL Cholesterol 173 0 - 200 mg/dL HDL 75 >=40 mg/dL LDL Cholesterol 89 0 - 100 mg/dL Blood Venous blood specimen / Unknown Historical Provider MD LAB BLOOD ORDERABLES Soheila l Result * Gonorrhea/Chlamydia Screening (09/09/2023) Gonorrhea/Chla mydia Screening abstracted Historical Provider MD HEALTH MAINTENANCE Final Result * Depression Screening (2023) Depression Screening abstracted Historical Provider MD HEALTH MAINTENANCE Final Result * Pap smear (10/01/2021) 10/01/2021 Narrative HISTORICAL TESTING LAB RESULTING AGENCY - 10/16/2021 7:45 AM EDT [id number] THINPREP PAP, IMAGED: NEGATIVE FOR SQUAMOUS INTRAEPITHELIAL LESION AND MALIGNANCY. SHIFT IN RADHA, SUGGESTIVE OF BACTERIAL VAGINOSIS. NOTE: THE PAP TEST IS A SCREENING TEST WITH AN INHERENT FALSE NEGATIVE RATE. AUTOMATED PRESCREENING OF ALL LIQUID BASED SPECIMENS IS PERFORMED BY THE THINPREP IMAGING SYSTEM UNLESS OTHERWISE STATED. DANAY BARAHONA(ASCP) (CASE ELECTRONICALLY SIGNED 10 15 2021) ADEQUACY: SATISFACTORY ENDOCERVICAL/TRANSFORMATION ZONE COMPONENT PRESENT. SOURCE: THINPREP PAP HPV IF ASCUS, CERVICAL, IMAGED CLINICAL INFORMATION: HPV IF DIAGNOSIS OF ASCUS. Z12.4 Minna Rottenberg DO LAB CYTOLOGY ORDERABLES Final Result HISTORICAL TESTING LAB RESULTING AGENCY from Last 3 Months or Most Recently Relevant to Health Maintenance Insurance MEDICAID - [place] Care Teams Virology Teacher Relationship Specialty Start Date End Date Amparo Amaya MD [address] [place] [phone] PCP - General Internal Medicine 02/05/22
--- OUTSIDE RECORDS SUMMARY | 2025-02-12 01:24 | XMS_ITS | Encounter Summary ---
Author Organization [facility] Address [address] [place] [address] Care Team Providers Care Steam Hand Name Role Phone Jaja Castañeda MD Primary Care Provider Unavailab Lea, Pcp Primary Care Provider Unavaildeyanira e Mando Reyes MD Primary Care Provider Un available Rosy Ríos DO Primary Care Pro vider Unavailable Rock Yancey MD Primary Care Provider Amparo Rogers MD Primary Care Provider [phone] Encounter Details Date Type Department Care Team Description 04/21/2016 Diamond Broker Report Medical Records [address] [place] [id number] Shea Ham MD Social History Tobacco Use Types Packs/Day [...] on filedocumented in this encounter Care Teams Steam Hand Relationship Specialty Start Date End Date Jaja Castañeda MD PCP - General Pediatrics 03/03/12 06/10/18 [facility], Pcp PCP - General Internal Medicine 06/11/18 07/21/18 Mando Reyes MD PCP - General Internal Medicine 07/22/18 KraRosy Dye DO PCP - General Internal Medicine 06/17/19 03/25/21 Rock Yancey MD PCP - General Internal Medicine 03/26/21 02/04/22 Amparo Amaya MD [address] [place] [address] PCP - General Internal Medicine 02/05/22 documented as of this encounter
--- OUTSIDE RECORDS SUMMARY | 2025-02-12 01:24 | XMS_ITS | Encounter Summary ---
Author Organization [facility] Address [address] [place] [address] Care Team Providers Care Cut Out Operator Name Role Phone Grace Vivas MD Primary Care Provider Jaja Angela MD Primary Care Provider [facility] Pcp Primary Care Provider UnavailMando Celestin MD Primary Care Provider Un available Rosy Ríos DO Primary Care Pro vider Unavailable Rock Yancey MD Primary Care Provider Amparo Rogers MD Primary Care Provider [phone] Reason for Visit * Reason Onset Date Comments Faxed Refill 10/30/2011 Encounter Details Date Type Department Care Team Description 10/30/2011 Refill Pediatrics - [address] [address] Grace Vivas MD Faxed Refill Social History Tobacco Use Types Packs/Day Years [...] encounter Miscellaneous Notes * Telephone Encounter - Grace Vivas MD - 10/30/2011 3:12 PM EDT The cream she asked for is for yeast or fungus infections combined wihta steroid. Would not refillfungalinfectin cream without being sure she needs it. Suggest appointment * Telephone Encounter - Aileen Jessica Mares - 10/30/2011 11:32 AM EDT When was patients last PE/WCC? 08/12/2010 When is patients next PE/WCC scheduled? 11/03/2011 Grace Vivas MD RX REQUEST WHEN MED [...] the message wait until the doctor returns?: n/a Has the patient been told that the prescription will not be filled until the end of the day? N/a Grace Vivas MD [facility] Plan: FFS HMO $0 LOVING [id number] Product Type: MEDICAID RISK documented in this encounter Plan of Treatment Not on file documented as of this encounter Visit Diagnoses Not on filedocumented in this encounter Care Teams Cut Out Operator Relationship Specialty Start Date End Date Grace Vivas MD PCP - General Pediatrics 06/24/11 03/02/12 Jaja Castañeda MD PCP - General Pediatrics 03/03/12 06/10/18 [facility], Pcp PCP - General Internal Medicine 06/11/18 07/21/18 Mando Reyes MD PCP - General Internal Medicine 07/22/18 Rosy Ríos DO PCP - General Internal Medicine 06/17/19 03/25/21 Rock Yancey MD PCP - General Internal Medicine 03/26/21 02/04/22 Amparo Amaya MD [address] [place] [id number] PCP - General Internal Medicine 02/05/22 documented as of this encounter
--- OUTSIDE RECORDS SUMMARY | 2025-02-12 01:24 | XMS_ITS | Encounter Summary ---
Author Organization [facility] Address [address] [place] [address] Care Team Providers Care Wing Scorer Name Role Phone Amparo Amaya MD Primary Care Provider [phone] Reason for Visit * Reason Onset Date Comments Fainting Spell 01/01/2024 Encounter Details Date Type Department Care Team Description 01/01/2024 Telephone Adult Medicine [address] [address] Amparo Amaya MD [address] [place] [address] Fainting Spell Social History Tobacco Use Types Packs/Day Years [...] encounter Miscellaneous Notes * Telephone Encounter - Larissa Gerardo R.N. - 01/01/2024 4:30 PM EDT Pt has been seen by che eugene and was advised to f/u with PCP , recently had nl ECHO, she needs to see dr barker to discuss plan for further testing /referral Pt has had the same pattern of symptoms for a significant amount of time, She has had w/u done withno findings Was due to see dr melendez 12/22 but had a family emergency and was not able to complete the visit, offered pt next available visit and she felt this was to far out , states she will seek care with another office, will request records and notify her insurance company when she has the name of new provider * Telephone Encounter - Lindy Sandoval - 01/01/2024 4:18 PM EDT Symptoms patient is presenting: Patient calling in states she continues to have fainting spells, the heat has been making her sick to her stomach. She just lost her job due to the fainting spells because it kept happening at work. Patient requesting call back to see where she can be referred to [facility]. For ALL patients calling to schedule any appointment (routine, sick visit, follow up, consult, etc.) in the outpatient setting please ask the following questions: ?? Do you have fever of higher than 101, sore throat with difficulty swallowing or severe shortnessof breath? NO If YES to any of these above symptoms, send a message to triage and do not book. Red dot. If no, an audio or video visit should be booked. ?? Have you had close contact with someone with Coronavirus in the last 14 days? NO ?? Have you traveled abroad? NO ?? Have you traveled recently to another state outside of [place], [place], [place], [place], [place], [place], [place]? NO o If yes, did you quarantine for 14 days or have a negative covid test? NO If yes to any of the above, patient is not to be scheduled in office until after 14 day quarantine or negative covid test. If pain or injury related was it due to an accident at work or from a motor vehicle accident? NO If yes, gather 3rd democrat insurance information Date of accident/Injury: How long has patient had these symptoms?: PCP: Amparo Amaya Payor: [facility] F[facility] / Plan: [facility] / Product Type: MEDICAID RISK documented in this encounter Plan of Treatment Not on file documented as of this encounter Visit Diagnoses Not on filedocumented in this encounter Care Teams Wing Scorer Relationship Specialty Start Date End Date Amparo Amaya MD [address] [place] [id number] PCP - General Internal Medicine 02/05/22 documented as of this encounter
--- OUTSIDE RECORDS SUMMARY | 2025-02-12 01:24 | XMS_ITS | Encounter Summary ---
Author Organization [facility] Address [address] [place] [address] Care Team Providers Care Auto Polisher Name Role Phone Mando Reyes MD Primary Care Provider Un available Rosy Ríos DO Primary Care Pro vider Unavailable Rock Yancey MD Primary Care Provider Amparo Rogers MD Primary Care Provider [phone] Encounter Details Date Type Department Care Team Description 09/16/2018 Orders Only Adult Medicine [address] [address] Ally See PA Social History Tobacco Use Types Packs/Day Years [...] on filedocumented in this encounter Care Teams Auto Polisher Relationship Specialty Start Date End Date Mando Reyes MD PCP - General Internal Medicine 07/22/18 Rosy Ríos DO PCP - General Internal Medicine 06/17/19 03/25/21 Rock Yancey MD PCP - General Internal Medicine 03/26/21 02/04/22 Amparo Amaya MD [address] [place] [address] PCP - General Internal Medicine 02/05/22 documented as of this encounter
--- OUTSIDE RECORDS SUMMARY | 2025-02-12 01:24 | XMS_ITS | Encounter Summary ---
Author Organization [facility] Address [address] [place] [address] Care Team Providers Care Process Maintenance Technician Name Role Phone Jaja Castañeda MD Primary Care Provider Unavailab Lea, Pcp Primary Care Provider Unavaildeyanira e Mando Reyes MD Primary Care Provider Un available Rosy Ríos DO Primary Care Pro vider Unavailable Rock Yancey MD Primary Care Provider Amparo Rogers MD Primary Care Provider [phone] Encounter Details Date Type Department Care Team Description 06/09/2016 Framing Machine Tender Report Medical Records [address] [place] [address] Shea Ham MD Social History Tobacco Use [...] on filedocumented in this encounter Care Teams Process Maintenance Technician Relationship Specialty Start Date End Date Jaja Castañeda MD PCP - General Pediatrics 03/03/12 06/10/18 [facility], Pcp PCP - General Internal Medicine 06/11/18 07/21/18 Mando Reyes MD PCP - General Internal Medicine 07/22/18 KraRosy Dye DO PCP - General Internal Medicine 06/17/19 03/25/21 Rock Yancey MD PCP - General Internal Medicine 03/26/21 02/04/22 Amparo Amaya MD [address] [place] [address] PCP - General Internal Medicine 02/05/22 documented as of this encounter
--- OUTSIDE RECORDS SUMMARY | 2025-02-12 01:24 | XMS_ITS | Encounter Summary ---
Author Organization [facility] Address [address] [place] [address] Care Team Providers Care Director Of Retail Name Role Phone Jaja Castañeda MD Primary Care Provider Unavailab Lea, Pcp Primary Care Provider UnavailMando Celestin MD Primary Care Provider Un available Rosy Ríos DO Primary Care Pro vider Unavailable Rock Yancey MD Primary Care Provider Amparo Rogers MD Primary Care Provider [phone] Encounter Details Date Type Department Care Team Description 07/07/2014 [facility] Medical Records [address] [place] [address] Prasad Sharma Social History Tobacco Use Types Packs/Day Years [...] in this encounter Care Teams Director Of Retail Relationship Specialty Start Date End Date Jaja Castañeda MD PCP - General Pediatrics 03/03/12 06/10/18 [facility], Pcp PCP - General Internal Medicine 06/11/18 07/21/18 Mando Reyes MD PCP - General Internal Medicine 07/22/18 Rosy Ríos DO PCP - General Internal Medicine 06/17/19 03/25/21 Rock Yancey MD PCP - General Internal Medicine 03/26/21 02/04/22 Amparo Amaya MD [address] [place] [address] PCP - General Internal Medicine 02/05/22 documented as of this encounter
--- OUTSIDE RECORDS SUMMARY | 2025-02-12 01:24 | XMS_ITS | Encounter Summary ---
Author Organization [facility] Address [address] [place] [address] Care Team Providers Care Elevated Work Platform Operator Name Role Phone Rock Yancey MD Primary Care Provider Amparo Rogers MD Primary Care Provider [phone] Reason for Visit * Reason Onset Date Comments Headache 09/27/2021 Encounter Details Date Type Department Care Team Description 09/27/2021 Pt. Non Urgent Medic al Question Adult Medicine [address] [address] Rock Yancey MD Social History Tobacco Use Types Packs/Day Years Used Date Smoking Tobacco: Never Smokeless Tobacco: Never Comments:dad and mom smokes outside only Alcohol Use Standard Drinks/Week Comments Yes 0 (1 standard drink = 0.6 oz pur e alcohol) occ Sex Assigned at Date Recorded Not on file Job Start Date Occupation Industry Not on file Not on file Not on file documented as of this encounter Progress Notes * Daniella Beltran R.N. - 10/04/2021 3:42 PM EDT Call to the patent and received the same electronic response Sent my chart message * Daniella Beltran R.N. - 09/27/2021 2:21 PM EDT Call to 251 number and the call was rejected Call to the other number on file and this # is not working Unable to LM documented in this encounter Miscellaneous Notes * Telephone Encounter - Grace Varma M.A. - 09/27/2021 2:15 PM EDTFrom: Kenny Archer To: Josi Yancey Sent: 09/27/2021 2:05 PM EDT Subject: appointment Hi, im reaching out to see if theres any way you can schedule me as soon as possible for headaches.I ve been dealing with horrible migraines the past month & a half & armando been having a very hard time trying to contact you guys over the phone documented in this encounter Plan of Treatment Not on file documented as of this encounter Visit Diagnoses Not on filedocumented in this encounter Care Teams Elevated Work Platform Operator Relationship Specialty Start Date End Date Rock Yancey MD PCP - General Internal Medicine 03/26/21 02/04/22 Amparo Amaya MD [address] [place] [id number] PCP - General Internal Medicine 02/05/22 documented as of this encounter
--- OUTSIDE RECORDS SUMMARY | 2025-02-12 01:24 | XMS_ITS | Encounter Summary ---
Author Organization [facility] Address [address] [place] [address] Care Team Providers Care Horticultural Specialty Grower Field Name Role Phone Amparo Amaya MD Primary Care Provider [phone] Encounter Details Date Type Department Care Team Description 07/18/2022 Orders Only Medical Records [address] [place] [address] Nahun العراقي MD [address] [place] [address] Social History Tobacco Use Types Packs/Day Years [...] suspected to have Coronavirus/COVID-19? No / Unsure 07/18/2022 10:50 AM EST documented as of this encounter Plan of Treatment Not on file documented as of this encounter Procedures Procedure Name Priority Date/Time Associated Diagnosis Comments OUTSIDE PATHOLOGY Routine 06/26/2022 documented in this encounter Results * OUTSIDE PATHOLOGY (06/26/2022) Nahun العراقي MD OUTSIDE LAB documented in this encounter Visit Diagnoses Not on filedocumented in this encounter Care Teams Horticultural Specialty Grower Field Relationship Specialty Start Date End Date Amparo Amaya MD [address] [place] [address] PCP - General Internal Medicine 02/05/22 documented as of this encounter
--- OUTSIDE RECORDS SUMMARY | 2025-02-12 01:24 | XMS_ITS | Encounter Summary ---
Author Organization [facility] Address [address] [place] [address] Care Team Providers Care And Rescue Fire Fighter Crash Fire Name Role Phone Jaja Castañeda MD Primary Care Provider Unavailab Lea, Pcp Primary Care Provider Unavaildeyanira e Mando Reyes MD Primary Care Provider Un available Rosy Ríos DO Primary Care Pro vider Unavailable Rock Yancey MD Primary Care Provider Amparo Rogers MD Primary Care Provider [phone] Encounter Details Date Type Department Care Team Description 03/31/2017 Adult Education Instructor Report Medical Records [address] [place] [address] Lorne Astudillo PA-C Social History Tobacco Use Types Packs/Day Years [...] on filedocumented in this encounter Care Teams And Rescue Fire Fighter Crash Fire Relationship Specialty Start Date End Date Jaja Castañeda MD PCP - General Pediatrics 03/03/12 06/10/18 [facility], Pcp PCP - General Internal Medicine 06/11/18 07/21/18 Mando Reyes MD PCP - General Internal Medicine 07/22/18 Rosy Ríos DO PCP - General Internal Medicine 06/17/19 03/25/21 Rock Yancey MD PCP - General Internal Medicine 03/26/21 02/04/22 Amparo Amaya MD [address] [place] [address] PCP - General Internal Medicine 02/05/22 documented as of this encounter
--- OUTSIDE RECORDS SUMMARY | 2025-02-12 01:24 | XMS_ITS | Encounter Summary ---
Author Organization [facility] Address [address] [place] [address] Care Team Providers Care Payroll Clerk Name Role Phone Jaja Castañeda MD Primary Care Provider Unavailab Lea, Pcp Primary Care Provider UnavailMando Celestin MD Primary Care Provider Un available Rosy Ríos DO Primary Care Pro vider Unavailable Rock Yancey MD Primary Care Provider Amparo Rogers MD Primary Care Provider [phone] Encounter Details Date Type Department Care Team Description 02/24/2018 [facility] Medical Records [address] [place] [address] Aileen Hua Social History Tobacco Use Types Packs/Day Years [...] on filedocumented in this encounter Care Teams Payroll Clerk Relationship Specialty Start Date End Date Jaja Castañeda MD PCP - General Pediatrics 03/03/12 06/10/18 [facility], Pcp PCP - General Internal Medicine 06/11/18 07/21/18 Mando Reyes MD PCP - General Internal Medicine 07/22/18 Rosy Ríos DO PCP - General Internal Medicine 06/17/19 03/25/21 Rock Yancey MD PCP - General Internal Medicine 03/26/21 02/04/22 Amparo Amaya MD [address] [place] [address] PCP - General Internal Medicine 02/05/22 documented as of this encounter
--- OUTSIDE RECORDS SUMMARY | 2025-02-12 01:24 | XMS_ITS | Encounter Summary ---
Author Organization [facility] [place] Address [address] [place] [address] Care Team Providers Care Enterprise Resource Planning Consultant Name Role Phone Jaja Castañeda MD Primary Care Provider Unavailab Lea, Pcp Primary Care Provider Unavaildeyanira e Mando Reyes MD Primary Care Provider Un available Rosy Ríos DO Primary Care Pro vider Unavailable Rock Yancey MD Primary Care Provider Amparo Rogers MD Primary Care Provider [phone] Encounter Details Date Type Department Care Team Description 08/23/2014 Suede Brusher Report Medical Records [address] [place] [address] Edie Jones Social History Tobacco Use Types [...] on filedocumented in this encounter Care Teams Enterprise Resource Planning Consultant Relationship Specialty Start Date End Date Jaja Castañeda MD PCP - General Pediatrics 03/03/12 06/10/18 [facility], Pcp PCP - General Internal Medicine 06/11/18 07/21/18 Mando Reyes MD PCP - General Internal Medicine 07/22/18 Rosy Ríos DO PCP - General Internal Medicine 06/17/19 03/25/21 Rock Yancey MD PCP - General Internal Medicine 03/26/21 02/04/22 Amparo Amaya MD [address] [place] [address] PCP - General Internal Medicine 02/05/22 documented as of this encounter
--- OUTSIDE RECORDS SUMMARY | 2025-02-12 01:24 | XMS_ITS | Encounter Summary ---
Author Organization [facility] Address [address] [place] [address] Care Team Providers Care Postal Supervisor Name Role Phone Amparo Amaya MD Primary Care Provider [phone] Encounter Details Date Type Department Care Team Description 07/21/2022 Telephone General Surgery - [place] [address] [address] Katalina Calloway PA-C [address] [address] Social History Tobacco Use Types Packs/Day Years [...] In the last 10 days, have suly boyer been in contact with someone who was confirmed or suspected to have Coronavirus/COVID-19? No / Unsure 07/18/2022 10:50 AM EST documented as of this encounter Miscellaneous Notes * Telephone Encounter - Katalina Calloway PA-C - 07/21/2022 3:50 PM EST I would recommend she go to the ED. She is likely very dehydrated. They will be able to give her fluids/get her comfortable and do further workup with labs and imaging as warranted. I evaluated her in the office and it seems she needs to see GI for further eval and management of upper GI symptoms, I placed an urgent consult. Imaging (US) and labs earlier in the month were all within normal limits; not suggestive of any post op complications. Thanks * Telephone Encounter - Melvi La - 07/21/2022 3:30 PM EST Change of symptoms from Thursday, has vomitted since Thursday, pts chest is painful due to vomiting, ptwas able to eat today 07/21 some chicken and potato wedges at 2pm. LLQ is on and off pain, along with RUQ similar to gallbladder location. Pt feels feverish, was very hot and sweaty, took 500mg tylenol at 230pm. Very weak, feel like she might faint, someone is home with her. Please advise futher ins tructions to phone [phone]. documented in this encounter Plan of Treatment Not on file documented as of this encounter Visit Diagnoses Not on filedocumented in this encounter Care Teams Postal Supervisor Relationship Specialty Start Date End Date Amparo Amaya MD [address] [place] [address] PCP - General Internal Medicine 02/05/22 documented as of this encounter
--- OUTSIDE RECORDS SUMMARY | 2025-02-12 01:24 | XMS_ITS | Encounter Summary ---
Author Organization [facility] Address [address] [place] [address] Care Team Providers Care Case Packer And Sealer Name Role Phone Amparo Amaya MD Primary Care Provider [phone] Reason for Visit * Reason Onset Date Comments Medical Records 09/14/2023 Records recived via fax, forwarded to provider for review Encounter Details Date Type Department Care Team Description 09/14/2023 Telephone OBGYN - 271 [facility] [address] [place] [address] Eva Nava CNM [address] [place] [address] Medical Records (Records recived via fax, forwarded to provider for review) Social History Tobacco Use Types Packs/Day Years [...] encounter Miscellaneous Notes * Telephone Encounter - Eva Nava CNM - 09/15/2023 9:09 AM EDT Medical records reviewd [facility] er visits on 10/08/2022 and 10/10/2022 URI symptoms, neg CXR Reports to Eva purvis CNM documented in this encounter Plan of Treatment Not on file documented as of this encounter Visit Diagnoses Not on filedocumented in this encounter Care Teams Case Packer And Sealer Relationship Specialty Start Date End Date Amparo Amaya MD [address] [place] [address] PCP - General Internal Medicine 02/05/22 documented as of this encounter
--- OUTSIDE RECORDS SUMMARY | 2025-02-12 01:24 | XMS_ITS | Encounter Summary ---
Author Organization [employer] [facility] Address [address] [place] [address] Care Team Providers Care Senior Android Developer Name Role Phone Jaja Castañeda MD Primary Care Provider [facility], Pcp Primary Care Provider Mando Kidd MD Primary Care Provider Un available Rosy Ríos DO Primary Care Pro vider Unavailable Rock Yancey MD Primary Care Provider Amparo Rogers MD Primary Care Provider [phone] Encounter Details Date Type Department Care Team Description 07/14/2014 Telephone Pediatrics - [address] [address] Jaja Castañeda MD Social History Tobacco Use Types Packs/Day [...] encounter Miscellaneous Notes * Telephone Encounter - Jaja Castañeda MD - 07/14/2014 2:02 PM EST I left a message to check on how she's recovering from surgery. I put in a referral for Kenny to be seen by neurology. I also had put in a referral to pedi EKG. If that is normal we can start on migraine prophylactic medicine. Family will need to change [employer] [facility] in order to be seen by [facility] neurology. I left the 1800 number on their answering machine documented in this encounter Plan of Treatment Not on file documented as of this encounter Visit Diagnoses Not on filedocumented in this encounter Care Teams Senior Android Developer Relationship Specialty Start Date End Date Jaja Castañeda MD PCP - General Pediatrics 03/03/12 06/10/18 [facility], Pcp PCP - General Internal Medicine 06/11/18 07/21/18 Mando Reyes MD PCP - General Internal Medicine 07/22/18 Rosy Ríos DO PCP - General Internal Medicine 06/17/19 03/25/21 Rock Yancey MD PCP - General Internal Medicine 03/26/21 02/04/22 Amparo Amaya MD [address] [place] [address] PCP - General Internal Medicine 02/05/22 documented as of this encounter
--- OUTSIDE RECORDS SUMMARY | 2025-02-12 01:24 | XMS_ITS | Encounter Summary ---
Author Organization [facility] Address [address] [place] [address] Care Team Providers Care Guest Service Aide Name Role Phone Grace Vivas MD Primary Care Provider Jaja Angela MD Primary Care Provider [facility] Primary [facility] Primary Care Provider Un available Rosy Ríos DO Primary Care Pro vider Unavailable Rock Yancey MD Primary Care Provider Amparo Rogers MD Primary Care Provider [phone] Reason for Visit * Reason Onset Date Comments TEST RESULTS 07/30/2011 strep throat pos itive Encounter Details Date Type Department Care Team Description 07/30/2011 Refill Pediatrics - [address] [address] Grace Vivas MD TEST RESULTS (strep throat positive) Social History Tobacco Use Types Packs/Day Years [...] filedocumented in this encounter Care Teams Guest Service Aide Relationship Specialty Start Date End Date Grace [...] Medicine 03/26/21 02/04/22 Amparo Amaya MD [address] [place] [address] PCP - General Internal Medicine 02/05/22 documented as of this encounter
--- OUTSIDE RECORDS SUMMARY | 2025-02-12 01:24 | XMS_ITS | Encounter Summary ---
Author Organization [facility] Address [address] [place] [address] Care Team Providers Care Giver Name Role Phone Jaja Castañeda MD Primary Care Provider Unavailab Lea, Pcp Primary Care Provider UnavailMando Celestin MD Primary Care Provider Un available Rosy Ríos DO Primary Care Pro vider Unavailable Rock Yancey MD Primary Care Provider Amparo Rogers MD Primary Care Provider [phone] Encounter Details Date Type Department Care Team Description 07/09/2014 [facility] Medical Records [address] [place] [address] Yoan Bhatt MD Social History Tobacco Use [...] on filedocumented in this encounter Care Teams Giver Relationship Specialty Start Date End Date Jaja Castañeda MD PCP - General Pediatrics 03/03/12 06/10/18 [facility], Pcp PCP - General Internal Medicine 06/11/18 07/21/18 Mando Reyes MD PCP - General Internal Medicine 07/22/18 Rosy Ríos DO PCP - General Internal Medicine 06/17/19 03/25/21 Rock Yancey MD PCP - General Internal Medicine 03/26/21 02/04/22 Amparo Amaya MD [address] [place] [address] PCP - General Internal Medicine 02/05/22 documented as of this encounter
--- OUTSIDE RECORDS SUMMARY | 2025-02-12 01:24 | XMS_ITS | Encounter Summary ---
Author Organization [facility] Address [address] [place] [address] Care Team Providers Care Fish Rod Maker Name Role Phone Jaja Castañeda MD Primary Care Provider Unavailab Lea, Pcp Primary Care Provider Unavaildeyanira e Mando Reyes MD Primary Care Provider Un available Rosy Ríos DO Primary Care Pro vider Unavailable Rock Yancey MD Primary Care Provider Amparo Rogers MD Primary Care Provider [phone] Encounter Details Date Type Department Care Team Description 06/09/2014 Commercial Analyst Report Medical Records [address] [place] [address] Edie Jones Social History Tobacco Use Types [...] on filedocumented in this encounter Care Teams Fish Rod Maker Relationship Specialty Start Date End Date Jaja Castañeda MD PCP - General Pediatrics 03/03/12 06/10/18 [facility], Pcp PCP - General Internal Medicine 06/11/18 07/21/18 Mando Reyes MD PCP - General Internal Medicine 07/22/18 Rosy Ríos DO PCP - General Internal Medicine 06/17/19 03/25/21 Rock Yancey MD PCP - General Internal Medicine 03/26/21 02/04/22 Amparo Amaya MD [address] [place] [address] PCP - General Internal Medicine 02/05/22 documented as of this encounter
--- OUTSIDE RECORDS SUMMARY | 2025-02-12 01:24 | XMS_ITS | Encounter Summary ---
Author Organization [facility] Address [address] [place] [address] Care Team Providers Care Project Management Professor Name Role Phone Amparo Amaya MD Primary Care Provider [phone] Reason for Visit * Reason Onset Date Comments Advice 06/27/2022 Encounter Details Date Type Department Care Team Description 06/27/2022 Telephone General Surgery - [place] [address] [address] Nahun Childress MD [address] [id number] Advice Social History Tobacco Use Types Packs/Day Years [...] encounter Miscellaneous Notes * Telephone Encounter - Rachel Del Valle - 07/18/2022 2:28 PM EST Patient called back and results were given. * Telephone Encounter - Rachel Del Valle - 07/18/2022 2:28 PM EST ----- Message from Nahun Childress MD sent at 07/18/2022 1:09 PM EST ----- Results reviewed. Please inform patient of benign findings. Follow up 2 weeks postop. Thanks * Telephone Encounter - Rachel Del Valle - 07/18/2022 2:18 PM EST Called patient and lvm to call back for results. * Telephone Encounter - Rachel Del Valle - 07/18/2022 2:18 PM EST ----- Message from Nahun Childress MD sent at 07/18/2022 1:09 PM EST ----- Results reviewed. Please inform patient of benign findings. Follow up 2 weeks postop. Thanks * Telephone Encounter - Darcie Lazcano M.A. - 06/30/2022 3:01 PM EST Rx is ready for poultry picking machine tender ,pt is aware * Telephone Encounter - Darcie Lazcano M.A. - 06/30/2022 10:52 AM EST Called pt to see if she did stat u/s ,she stated that it was a fasting u/s and she had already ate at that time already.So called [facility] u/s department spoke with Shasta márquez/lorenzo pt for today at 12PM andpt was told to do labs as well. Pt then asked again , MD stated that once u/s and labs have been done pt can come to office and poultry picking machine tender rx * Telephone Encounter - Isabela Maravilla - 06/30/2022 8:54 AM EST Pt states [facility] [address] [facility] [place] has not received prescription for oxy's yet. * Telephone Encounter - Britany Calvert - 06/27/2022 3:05 PM EST Pt called and stated she spoke to Dr childress a few hours ago and he was supossed to send her a script for oxys. Pt states she uses different pharmacies and waant to speack to him to make sure it was sent to the right one she wants. Please advise documented in this encounter Plan of Treatment Not on file documented as of this encounter Visit Diagnoses Not on filedocumented in this encounter Care Teams Project Management Professor Relationship Specialty Start Date End Date Amparo Amaya MD [address] [place] [address] PCP - General Internal Medicine 02/05/22 documented as of this encounter
--- OUTSIDE RECORDS SUMMARY | 2025-02-12 01:24 | XMS_ITS ---
Author Name [facility] Organization Unknown Care Team Organization Name Specialty Phone Email Start Date End Da te [facility] Amparo Amaya Primary Care 08/06/2022 024 [facility] Termed, PROVIDER Primary Care 04/08/202212/30
--- OUTSIDE RECORDS SUMMARY | 2025-02-12 01:24 | XMS_ITS | Encounter Summary ---
Author Organization [facility] Address [address] [place] [address] Care Team Providers Care Maintenance Of Way Clerk Name Role Phone Amparo Amaya MD Primary Care Provider [phone] Encounter Details Date Type Department Care Team Description 06/30/2022 Orders Only General Surgery - [place] 175 [facility] [address] [place] [id number] Nahun العراقي MD [address] [phone] Status post laparoscopic cholecystectomy; Generalized abdominal pain; Nausea; Dark urine; Acute shoulder pain, unspecified laterality Social History Tobacco Use Types Packs/Day Years [...] Procedure Name Priority Date/Time Associated Diagnosis Comments SONO ABDOMEN COMPLETE STAT 06/30/2022 Status post laparoscopic cholecystectomy Generalized abdominal pain Nausea Dark urine Acute shoulder pain, unspecified laterality documented in this encounter Results * SONO ABDOMEN COMPLETE (06/30/2022) Nahun العراقي MD ULTRASOUND documented in this encounter Visit Diagnoses Diagnosis Status post laparoscopic cholecystectomy Other postprocedural status Generalized abdominal pain Abdominal pain, generalized Nausea Nausea alone Dark urine Other nonspecific finding on examination of urine Acute shoulder pain, unspecified laterality documented in this encounter Care Teams Maintenance Of Way Clerk Relationship Specialty Start Date End Date Amparo Amaya MD [address] [place] [address] PCP - General Internal Medicine 02/05/22 documented as of this encounter
--- OUTSIDE RECORDS SUMMARY | 2025-02-12 01:24 | XMS_ITS | Encounter Summary ---
Author Organization [facility] Address [address] [place] [address] Care Team Providers Care Boat Patcher Plastic Name Role Phone Jaja Castañeda MD Primary Care Provider Unavailab Lea, Pcp Primary Care Provider Unavaildeyanira e Mando Reyes MD Primary Care Provider Un available Rosy Ríos DO Primary Care Pro vider Unavailable Rock Yancey MD Primary Care Provider Amparo Rogers MD Primary Care Provider [phone] Encounter Details Date Type Department Care Team Description 07/24/2014 Machine Programmer Report Medical Records [address] [place] [address] Edie Jones Social History Tobacco Use Types [...] on filedocumented in this encounter Care Teams Boat Patcher Plastic Relationship Specialty Start Date End Date Jaja Castañeda MD PCP - General Pediatrics 03/03/12 06/10/18 [facility], Pcp PCP - General Internal Medicine 06/11/18 07/21/18 Mando Reyes MD PCP - General Internal Medicine 07/22/18 Rosy Ríos DO PCP - General Internal Medicine 06/17/19 03/25/21 Rock Yancey MD PCP - General Internal Medicine 03/26/21 02/04/22 Amparo Amaya MD [address] [place] [address] PCP - General Internal Medicine 02/05/22 documented as of this encounter
--- OUTSIDE RECORDS SUMMARY | 2025-02-12 01:24 | XMS_ITS | Clinical Summary ---
Author Organization [facility] Address [address] [place] [address] Care Team Providers Care Sox Analyst Name Role Phone Pcp, No Primary Care Provider Unavailabl e Allergies Active Allergy Reactions Criticality Noted Date Comments Sulfamethoxazole-Trimethoprim Unknown/Pa tient and Family Unable to Define Medium 11/06/2019 Diphenhydramine Unknown/Patient and Family Unable to Define Medium 11/06/2019 Medications meclizine (ANTIVERT) 25 MG tablet Take 1 tablet (25 mg total) by mouth Every 6 (six) to 8 (eight) hours as needed for dizziness. 20 tablet 02/14/2020 Active Social History Tobacco Use Types Packs/Day Years Used Date Smoking Tobacco: Never Assessed Comments Unknown Sex and Gender Information Value Date Recorded Sex Assigned at Not on file Legal Sex Female 6:42 PM EDT Gender Identity Not on file Sexual Orientation Not on file Last Filed Vital Signs Vital Sign Reading Time Taken Comments Blood Pressure 104/57 02/14/2020 12:44 PM EDT Pulse 65 02/14/2020 12:44 PM EDT Temperature 35.4 C (95.7 F) 02/14/2020 11:58 AM EDT Respiratory Rate 16 02/14/2020 12:44 PM EDT Oxygen Saturation 99% 02/14/2020 12:44 PM EDT Inhaled Oxygen Concentration - - Weight - - Height - - Body Mass Index - - Plan of Treatment Health Maintenance Due Date Last Done Comments Hepatitis C Virus Screening 1999 HIV Screening 08/26/2012 HPV Vaccines (1 - 3-dose series) 08/26/2014 DTaP/Tdap/Td Vaccines (1 - Tdap) 08/26/2018 Hepatitis B Vaccines (1 of 3 - 19+ 3-dose series) 08/26/2018 Pap Smear (Ages 21-65) 08/26/2020 Influenza Vaccine 12/30/2024 02/15/2014 COVID-19 Vaccine (1 - 2023-2 5 season) 2025 Pneumococcal Vaccine: Pediat karlee (0-5 Years) and At-Risk Patients (6 to 49 Years) Aged Out No longer eligible b ased on patient's age to complete this topic Insurance [facility] Care Teams Sox Analyst Relationship Specialty Start Date End Date Pcp, No [address] [place] [address] PCP - General 01/26/20
--- OUTSIDE RECORDS SUMMARY | 2025-02-12 01:24 | XMS_ITS | Encounter Summary ---
Author Organization [facility] Address [address] [place] [address] Care Team Providers Care Lightout Examiner Name Role Phone Jaja Castañeda MD Primary Care Provider Unavailab Lea, Pcp Primary Care Provider Unavaildeyanira e Mando Reyes MD Primary Care Provider Un available Rosy Ríos DO Primary Care Pro vider Unavailable Rock Yancey MD Primary Care Provider Amparo Rogers MD Primary Care Provider [phone] Encounter Details Date Type Department Care Team Description 06/15/2015 Para Professional Report Medical Records [address] [place] [address] Edie Jones Social History Tobacco Use Types [...] on filedocumented in this encounter Care Teams Lightout Examiner Relationship Specialty Start Date End Date Jaja Castañeda MD PCP - General Pediatrics 03/03/12 06/10/18 [facility], Pcp PCP - General Internal Medicine 06/11/18 07/21/18 Mando Reyes MD PCP - General Internal Medicine 07/22/18 Rosy Ríos DO PCP - General Internal Medicine 06/17/19 03/25/21 Rock Yancey MD PCP - General Internal Medicine 03/26/21 02/04/22 Amparo Aamya MD [address] [place] [address] PCP - General Internal Medicine 02/05/22 documented as of this encounter
--- OUTSIDE RECORDS SUMMARY | 2025-02-12 01:24 | XMS_ITS | Encounter Summary ---
Author Organization [facility] Address [address] [place] [address] Care Team Providers Care Plaster Caster Name Role Phone Amparo Amaya MD Primary Care Provider [phone] Encounter Details Date Type Department Care Team Description 06/26/2022 Hospital Medical Records [address] [place] [address] Nahun العراقي MD [address] [address] Social History Tobacco Use Types Packs/Day Years [...] on filedocumented in this encounter Care Teams Plaster Caster Relationship Specialty Start Date End Date Amparo Amaya MD [address] [place] [address] PCP - General Internal Medicine 02/05/22 documented as of this encounter
--- OUTSIDE RECORDS SUMMARY | 2025-02-12 01:24 | XMS_ITS | Encounter Summary ---
Author Organization [facility] Address [address] [place] [address] Care Team Providers Care Strategic Planning Manager Name Role Phone Jaja Castañeda MD Primary Care Provider Unavailab badillo [facility], Pcp Primary Care Provider UnavailMando Celestin MD Primary Care Provider Un available Rosy Ríos DO Primary Care Pro vider Unavailable Rock Yancey MD Primary Care Provider Amparo Rogers MD Primary Care Provider [phone] Encounter Details Date Type Department Care Team Description 08/01/2016 Manager Paper Report Medical Records [address] [place] [id number] Abstract, Provider Social History Tobacco Use Types [...] on filedocumented in this encounter Care Teams Strategic Planning Manager Relationship Specialty Start Date End Date Jaja Castañeda MD PCP - General Pediatrics 03/03/12 06/10/18 [facility], Pcp PCP - General Internal Medicine 06/11/18 07/21/18 Mando Reyes MD PCP - General Internal Medicine 07/22/18 Rosy Ríos DO PCP - General Internal Medicine 06/17/19 03/25/21 Rock Yancey MD PCP - General Internal Medicine 03/26/21 02/04/22 Amparo Amaya MD [address] [place] [id number] PCP - General Internal Medicine 02/05/22 documented as of this encounter
--- OUTSIDE RECORDS SUMMARY | 2025-02-12 01:24 | XMS_ITS | Encounter Summary ---
Author Organization [facility] Address [address] [place] [address] Care Team Providers Care Vp Transportation Name Role Phone Rock Yancey MD Primary Care Provider Amparo Rogers MD Primary Care Provider [phone] Encounter Details Date Type Department Care Team Description 11/19/2021 Orders Only Medical Records [address] [place] [address] Josi Leo MD [address] [place] [address] Social History Tobacco Use Types Packs/Day Years [...] PM EDT documented as of this encounter Progress Notes * Shiv Leo MD - 11/25/2021 8:47 AM EDT Dear Kenny, The biopsies of your stomach taken during the endoscopy were normal. Please follow up in order to discuss these findings with the referring physician at [facility] gastroenterology clinic.I would like to personally thank you for allowing us to take care of you. Please don't hesitate to call us for any questions or concerns. Regards, Wiliam Leo MD Board Certified Gastroenterology andInternal Medicine Transplant Hepatology [facility] documented in this encounter Plan of Treatment Not on file documented as of this encounter Procedures Procedure Name Priority Date/Time Associated Diagnosis Comments OUTSIDE PATHOLOGY Routine 11/08/2021 documented in this encounter Results * OUTSIDE PATHOLOGY (11/08/2021) Josi Leo MD OUTSIDE LAB documented in this encounter Visit Diagnoses Not on filedocumented in this encounter Care Teams Vp Transportation Relationship Specialty Start Date End Date Rock Yancey MD PCP - General Internal Medicine 03/26/21 02/04/22 Amparo Amaya MD [address] [place] [id number] PCP - General Internal Medicine 02/05/22 documented as of this encounter
--- OUTSIDE RECORDS SUMMARY | 2025-02-12 01:24 | XMS_ITS | Encounter Summary ---
Author Organization [facility] Address [address] [place] [address] Care Team Providers Care Operations Inspector Name Role Phone Grace Vivas MD Primary Care Provider Jaja Angela MD Primary Care Provider [facility], Pcp Primary Care Provider Manod Kidd MD Primary Care Provider Un available Rosy Ríos DO Primary Care Pro vider Unavailable Rock Yancey MD Primary Care Provider Amparo Rogers MD Primary Care Provider [phone] Encounter Details Date Type Department Care Team Description 07/31/2011 Patch Sander Report Medical Records [address] [place] [id number] Lorne Astudillo PA-C Social History Tobacco Use [...] on filedocumented in this encounter Care Teams Operations Inspector Relationship Specialty Start Date End Date Grace Vivas MD PCP - General Pediatrics 06/24/11 03/02/12 Jaja Castañeda MD PCP - General Pediatrics 03/03/12 06/10/18 [facility], Pcp PCP - General Internal Medicine 06/11/18 07/21/18 Mando Reyes MD PCP - General Internal Medicine 07/22/18 Rosy Ríos DO PCP - General Internal Medicine 06/17/19 03/25/21 Rock Yancey MD PCP - General Internal Medicine 03/26/21 02/04/22 Amparo Amaya MD [address] [place] [id number] PCP - General Internal Medicine 02/05/22 documented as of this encounter
[2025-02-12 02:49] VITALS: BP 97/48; PULSE 74; RESP 18; TEMP 36.7; O2SAT 100
[2025-02-12 02:50] VITALS: BP 97/48; PULSE 74; RESP 18; TEMP 36.7; O2SAT 100
== END 2025-02-12 02:50 | disposition home or self-care (01) ==
PROVIDERS: Emergency Provider Emergency Medicine
DX: G43.909 Migraine, unspecified, not intractable, without status migrainosus (principal); R11.0 Nausea; Z11.52 Encounter for screening for COVID-19; Z79.899 Other long term (current) drug therapy
CPT/HCPCS: 70450; 80053; 84702; 85025; 87502; 87635; 96361; 96374; 96375; 99284; J0131; J2405

== ENCOUNTER → 2025-02-12 00:54 | Outpatient (BNV) | payer MEDICAID, SELFPAY | PROVIDERS: Emergency Provider Emergency Medicine; Visit Provider Radiology Diagnostic Radiology | DX: R51.9 Headache, unspecified (principal) | CPT/HCPCS: 70450 ==